=== PATIENT | male | born 1935 | race Caucasian/White ===

== ENCOUNTER 2016-09-09 14:51 | Inpatient (IN) | payer MEDICARE, OTHER ==
[~2016-09-09] VITALS: Ht 182.9 cm; Wt 76.3 kg
[~2016-09-09 14:51] MED LIST: ALBU18HF INH; ASCO100089 PO; B12/1TAB PO; DOXA4TAB3 PO; HYDR-4003 PO; LISI-567 PO; LOV80 SUBQ; METO50TA3 PO; MOME13HF INH; MULT-1018 PO; POTA10TA38 PO; PRD2.5T PO; TIOT18CA3 INH; UBID10CA4 PO; WARF1TAB8 PO; WARF2.5T8 PO
[2016-09-09 15:02] VITALS: BP 152/78; PULSE 104; RESP 22; O2SAT 88
--- NOTE | 2016-09-09 15:33 | ED.REPORT ---
HPI-Dyspnea / Wheezing Date of Service Sep 09, 2016 ED Provider: Lexa Jaeger MD 81 year old male with known COPD, and atrial fibrillation, anticoagulated on warfarin, presents to the ER accompanied by his with acute on chronic shortness of breath onset this morning upon awakening. Symptoms are exacerbated by minimal exertion. Currently symptoms are significantly improved. He also reports fever, increased work of breathing, cough, nasal congestion, and chills. Fever has been treated with Tylenol at home. Patient denies chest pain, nausea, vomiting, lower extremity swelling, and any exposure to ill contacts. He has received an influenza vaccination this year. reports that the patient finished a course of antibiotics 3-4 days ago for a suspected abscess on his right ankle. Nursing Notes Stated Complaint: COUGH, CONGESTION, SHORTNESS OF BREATH, CHILLS Chief Complaint: Respiratory Complaints Nursing Notes Reviewed: Yes (ScanSocial not reconciled) Allergies: Coded Allergies: codeine (Verified Allergy, Severe, Hives, 09/09/16) Sulfa (Sulfonamide Antibiotics) (Verified Allergy, Mild, 09/09/16) Scheduled Ascorbic Acid (Vitamin C) 1,000 Mg Tab.chew 1,000 MG PO DAILY B12/Levomefolate Calcium/B-6 (Foltx Tablet) 1 Each Tablet 1 EACH PO DAILY Doxazosin Mesylate (Doxazosin Mesylate) 4 Mg Tablet 4 MG PO DAILY Enoxaparin (Lovenox) 80 Mg/0.8 Ml Syringe 80 MG SUBQ Q12 Lisinopril (Lisinopril) 20 Mg Tablet 20 MG PO DAILY Metoprolol Tartrate (Metoprolol Tartrate) 50 Mg Tablet 75 MG PO BID Mometasone/Formoterol (Dulera 200 Mcg/5 Mcg Inhaler) 13 Gm Hfa.aer.ad 2 PUFFS INH BID Multivitamin (Multi Vitamin Daily) 1 Each Tablet 1 EACH PO DAILY Potassium Chloride (Potassium Chloride) 10 Meq Tab.er.prt 10 MEQ PO DAILY Tiotropium M[place] (Spiriva) 18 Mcg Cap.w.dev 18 MCG INH DAILY Ubidecarenone (Co Q-10) 10 Mg Capsule 10 MG PO DAILY Warfarin Sodium (Jantoven) 2.5 Mg Tablet 2.5 MG PO Wed, ,Wed,,Aquino Warfarin Sodium (Jantoven) 1 Mg Tablet 1.25 MG PO Scheduled PRN Albuterol Sulfate (Ventolin HFA Inhaler) 200 Puff/18 Gm Inhaler 2 PUFFS INH PRN For Shortness of Breath Hydrocodone-Acetaminophen 5-325 mg (Hydrocodone-Acetaminophen 5-325 mg) 1 Each Tablet 1-2 TABLET PO Q4H PRN PRN For Moderate Pain Prednisone (PredniSONE) 2.5 Mg Tab 5 MG PO DAILY PRN PRN For Mild Pain General Time Seen by MD: 15:17 Chief Complaint Cough, Shortness of breath Hx Obtained From: Patient, Spouse Arrived By: Walk-in Sudden in Onset?: No Onset Occurred: 9 - 12 hours ago Symptom Duration: Since onset Associated with: Reports: Fever, Nasal congestion (/), Denies: Chest pain, Leg pain, Leg swelling, Nausea, Vomiting Exacerbated by: Activity Pertinent Negative: Relieved by nothing Context Related History: Reports: COPD Recent Healthcare: Recent doctor visit Past Medical History Past Medical History Notes: Admit 05/2016 for appendicitis Past Medical History Atrial Fibrillation & ?mechanical Valve on Warfarin (note on Sep 09 I do not appreciate a mechanical heart valve on Xray) COPD Skin cancer Cervical disc disease Past Surgical History s/p TAVR Aortic valve replacement (mechanical per EMR, but I do not appreciate on CXR 09/09/16) Neck surgery 3 skins cancers removed Pacemaker Anatomy June 03 Reports: Pacemaker insertion Smoking History Never Smoker Social History Alcohol Use: "Social" Drug Use: Denies drug use Other Social History: Ambulatory Status Independent Review of Systems Constitutional: Reports: Chills, Fever Ears / Nose / Throat: Reports: Nasal congestion Respiratory: Reports: Dyspnea on exertion, Non-productive cough, Shortness of breath, Denies: Hemoptysis Cardiovascular: Denies: Chest pain, Palpitations Musculoskeletal: Denies: Back pain, Extremity pain, Extremity swelling, Lumbar pain, Neck pain Skin: Denies Diaphoresis Complete sys rev & neg: except as marked. GI: Denies: Abdominal pain, Diarrhea, Nausea, Vomiting Physical Exam Initial Vital Signs Vital Signs (First) Date Time Temp Pulse Resp B/P Pulse Ox O2 Delivery O2 Flow Rate FiO2 09/09/16 15:02 39.0 104 22 152/78 88 Room Air 09/09/16 16:33 2 Initial VS: Reviewed, Vital signs abnormal Head / Eyes: Atraumatic, Normocephalic Abdomen / GI: Soft, Non-tender, No guarding, No rebound, No distention Skin: Warm, Dry, No cyanosis Neurologic: Alert, Oriented, Nonfocal Psychiatric: Mood/affect normal, Behavior normal, Normal thought content General/Constitutional: Awake, Alert, Well developed, Well nourished Fatigued. Neck: Atraumatic, Supple, No meningismus, Full range of motion, No swelling, Non-tender, No masses Respiratory / Chest: No wheezing, No chest tenderness, No chest wall deformity Rales / Rhonchi: Positive: Rhonchi diffuse Cardiovascular: Heart rate NL, Regular rhythm, Heart sounds NL, Peripheral circulation NL +1 edema of the ankles Ankle / Foot: Full range of motion, No deformity, Neurologic intact, Vascular intact No warmth or signs of infection. Interpretation & Diagnostics Lab Results Interpretation Result Diagram: 09/09/16 1534 09/09/16 1534 Test 09/09/16 15:34 09/09/16 16:01 09/09/16 16:36 White Blood Count 11.3th/mm3 (3.8-10.1) Red Blood Count 3.79mil/mm3 (4.40-5.80) Hemoglobin 12.7g/dL (13.8-17.2) Hematocrit 39.2% (41.0-50.0) Mean Corpuscular Volume 103.4fL (81-100) Mean Corpuscular Hemoglobin 33.5pg (27.0-35.0) Mean Corpuscular Hemoglobin Concent 32.4% (32.0-37.0) Red Cell Distribution Width 14.8% (12.3-15.4) Platelet Count 157bil/L (150-400) Neutrophils (%) (Auto) 87.6% (40-74) Lymphocytes (%) (Auto) 7.2% (14-46) Monocytes (%) (Auto) 3.6% (4-12) Eosinophils (%) (Auto) 1.0% (0-5) Basophils (%) (Auto) 0.1% (0-3) Prothrombin Time 19.5sec (8.1-12.5) Prothromb Time International Ratio 1.80ratio Sodium Level 139mEq/L (134-144) Potassium Level 4.3mEq/L (3.5-5.2) Chloride Level 102mEq/L (97-108) Carbon Dioxide Level 24mmol/L (18-29) Blood Urea Nitrogen 21mg/dL (8-27) Creatinine 1.09mg/dL (0.76-1.27) Estimat Glomerular Filtration Rate 69mL/min (>59) Glucose Level 137mg/dL (60-99) Lactic Acid Level 1.4mmol/L (0.4-2.0) Calcium Level 8.7mg/dL (8.5-10.1) Total Bilirubin 0.4mg/dL (0.0-1.2) Aspartate Amino Transf (AST/SGOT) 26U/L (0-50) Alanine Aminotransferase (ALT/SGPT) 26U/L (0-44) Alkaline Phosphatase 62U/L (25-160) Troponin T < 0.010ug/L (0.0-0.011) Pro-B-Type Natriuretic Peptide 491.9pg/mL (0-486) Total Protein 6.2g/dL (6.4-8.4) Albumin 3.5g/dL (3.4-5.0) Urine Color Yellow (YELLOW) Urine Appearance Clear (CLEAR,HAZY) Urine pH 5.5 (5.0-8.0) Urine Specific [place] 1.025 (1.003-1.035) Urine Protein Negativemg/dL (NEG,TRACE) Urine Glucose (UA) Negativemg/dL (NEGATIVE) Urine Ketones Negativemg/dL (NEGATIVE) Urine Occult Blood Negative (NEGATIVE) Urine Nitrite Negative (NEGATIVE) Urine Bilirubin Negative (NEGATIVE) Urine Urobilinogen Normalmg/dL (NORMAL) Urine Leukocyte Esterase Negative (NEGATIVE) Urine RBC 0-2/hpf (0-2) Urine WBC 0-5/hpf (0-5) Urine Epithelial Cells None/hpf (NONE-MOD) Urine Crystals None seen (NONE SEEN) Urine Bacteria Few/hpf (NONE-FEW) Urine Hyaline Casts None/lpf (NONE) Urine Granular Casts None seen (NONE SEEN) Urine Waxy Casts None seen (NONE SEEN) Urine Red Blood Cell Casts None seen (NONE SEEN) Urine White Blood Cell Casts None seen (NONE SEEN) Urine Mucus None seen (None Seen) Urine Trichomonas None seen (NONE SEEN) Urine Yeast None (NONE SEEN) Urinalysis Comment None Urine Culture Reflexed Not indicated Hold Urine Received (Received) Lab Results Interpretation: CBC possible leukocytosis CMP normal Influenza A positive Lactic acid normal blood cultures 2 pending INR subtherapeutic ECG Interpretation ECG Interpretation: Ventricular paced complexes, rate 102 Time: 15:41 Interpreted by: ED physician X-Ray Chest Interpretation Chest Xray Interpretation: IMPRESSION: Bibasilar atelectasis versus aspiration or pneumonia. Correlate clinically. Dictated by: Lenin Cesar RRA Interpreted: Niya Rizo MD on 09/09/2016 at 16:20 Transcribed by: ARAMIS on 09/09/2016 at 16:21 View: Portable, 1 view Interpretation / Wet Read by: Interpret - Radiologist Re-Eval/Medical Decision Med Decision/Clinical Course This is an 81-year-old male presents with acute onset of fevers, chills, shortness of breath. The patient has chronic COPD, but is not on home O2. Pacemaker, and a history of atrial fibrillation on warfarin. The EMR suggests a history of mechanical valve, but it sounds to me like he had a true TAVR for aortic stenosis, and I do not appreciate findings of a mechanical heart valve on his chest x-ray. Patient is mildly hypoxic, tachypneic, and has diffuse rhonchi-not dwight bronchospasm-on clinical exam. He does appear fatigued. He is febrile. His chest x-ray suggests a lower lobe pneumonia. His influenza screen is positive for influenza A. He has hypoxia, comorbidities the patient was started on empiric Tamiflu, he received Tylenol for fever, IV fluids, and antibiotics for community-acquired pneumonia. He has no risk factors for hospital acquired infection. He received empiric albuterol, Atrovent, and steroids. On re-evaluation he states he is feeling better, but her blood pressure in the low 90s, so additional fluids were given. The patient is being admitted in improved condition. He states that he feels much better, he looks markedly improved, his lactic acid is normal. He does not appear to additionally septic, he monitored carefully. He does have classic influenza findings superimposed upon multiple comorbidities. Case has been discussed with the hospitalist. The patient's INR slightly subtherapeutic. He is anticoagulated for regular atrial fibrillation and not a mechanical valve given a valve is not seen on xray. His INR is likely to increase with the antibiotics being used. Source of Hx: Old records Re-Evaluation/Progress : Time of Eval: 18:30 Re-Evaluation/Progress Note: Discussed lab and radiology results and need for admission. Patient is amenable to the plan. All other questions addressed. Consultation : Referral / Consult Name: Jennifer Meadows MD Consulted With: Hospitalist Call Returned at: 18:57 Youth Counselor: Agrees with eval, Agrees with plan, Accepts admit Differential Diagnosis: Positive: COPD exacerbation, Dysrhythmia, Pneumonia, Upper resp infection, Negative: Carbon monoxide poisoning, Hyperventilation, Myocardial infarction , Pneumothorax, Pulmonary embolism, Respiratory failure Counseled Regarding: Diagnosis, Lab results, Need for admission Discharge & Departure Impression: Primary Impression: Pneumonia Pneumonia type: due to unspecified organism Laterality: bilateral Lung location: lower lobe of lung Qualified Code: J18.9 - Pneumonia, unspecified organism Additional Impressions: Influenza A Anticoagulated on Coumadin COPD with acute exacerbation Disposition: ADMITTED TO HOSPITAL Discharge Condition All VS Reviewed: Yes Condition: Stable Referrals: Brandon Carbajal MD (PCP) Francy Attestation Portions of this note were transcribed by Salvatore North. I, Dr. Jaeger, personally performed the history, physical exam and medical decision-making; I reviewed and confirmed the accuracy of the information in the transcribed note. Signed by: Francy Jones, 09/09/2016 and 18:30 copies to: Brandon Carbajal MD, Matthew F MD Sep 09, 2016 15:32 SALVATROE NORTH Sep 09, 2016 15:41
[2016-09-09] MEDS ORDERED: Albuterol 2.5 mg/3 mL Inhalation Solution NEB ONE (16:00)
[2016-09-09] MEDS ORDERED: MethylprednisoLONE Sodium Succinate 62.5 mg/mL 2 mL Inj IVPUSH ONE (16:00)
[2016-09-09] MEDS ORDERED: Ipratropium 0.02% 0.5 mg/2.5 mL Inhalation Solution NEB ONE (16:00)
[2016-09-09 16:08] LABS: BASOPHILS % (AUTO) 0.1 % (0-3); MONOCYTES % (AUTO) 3.6 % (4-12); Mean Corpuscular Hemoglobin 33.5 pg (27.0-35.0); Mean Corpuscular Volume 103.4 fL (81-100); NEUTROPHILS % (AUTO) 87.6 % (40-74); Platelet Count 157 bil/L (150-400)
[2016-09-09 16:17] LABS: APPEARANCE,URINE CLEAR (CLEAR,HAZY); COLOR,URINE YELLOW (YELLOW); OCCULT BLOOD,URINE NEGATIVE (NEGATIVE); PH,URINE 5.5 (5.0-8.0); UROBILINOGEN,URINE NORMAL (NORMAL)
[2016-09-09] MEDS ORDERED: Azithromycin Inj 500 MG in Dextrose 5% w/Vial Mate 250 ML IV ONE (16:20)
[2016-09-09] MEDS ORDERED: cefTRIAXone Inj 2,000 MG in Dextrose 5% Minibag Plus 50 ML IV ONE (16:20)
--- NOTE | 2016-09-09 16:21 | DRSVH ---
PROCEDURE: X-RAY CHEST ONE VIEW, PORTABLE ([id number]) INDICATIONS: SHORT OF BREATH TECHNIQUE: One view of the chest was acquired. COMPARISON: [facility], CT, CT ABD PELVIS W CON, 06/02/2016, 2:39. FINDINGS: Surgical changes and devices: Dual chamber left cardiac pacer present in expected position. Lungs and pleura: No pleural effusions or pneumothorax. Bibasilar airspace opacities are present, l eft greater than right, otherwise lungs are clear. Mediastinum: Mediastinal contours appear normal. Heart size is normal. Bones and chest wall: No suspicious bony lesions. Overlying soft tissues appear unremarkable. IMPRESSION: Bibasilar atelectasis versus aspiration or pneumonia. Correlate clinically. Dictated by: Lenin Cesar RRA Interpreted: Niya Rizo MD on 09/09/2016 at 16:20 Transcribed by: ARAMIS on 09/09/2016 at 16:21 Approved by: Niya Rizo MD, PhD on 09/09/2016 at 16:47
[2016-09-09 16:28] LABS: TROPONIN T < 0.010 ug/L (0.0-0.011)
[2016-09-09 16:33] VITALS: PULSE 122; RESP 32; O2SAT 98
[2016-09-09] MEDS ORDERED: Alum-Mag Hydrox-Simeth 30 mL Suspension PO PRN (18:05)
[2016-09-09] MEDS ORDERED: Ondansetron 2 mg/mL 2 mL Inj IVPUSH PRN (18:05)
[2016-09-09 18:21] LABS: INR 1.8 ratio
[2016-09-09 18:54] VITALS: BP 99/41; PULSE 106; RESP 28; O2SAT 96
[2016-09-09] MEDS ORDERED: 0.9% Sodium Chloride 1,000 ML IV ONE (18:55)
[2016-09-09 19:23] VITALS: BP 114/67; PULSE 91; RESP 18; O2SAT 96
[2016-09-09] MEDS ORDERED: Albuterol-Ipratropium 3 mL Inhalation Solution NEB SCH (20:30)
[2016-09-09] MEDS ORDERED: Albuterol-Ipratropium 3 mL Inhalation Solution NEB PRN (20:30)
[2016-09-09 21:28] VITALS: BP 132/74; PULSE 87; O2SAT 97
[2016-09-09] MEDS: 0.9% Sodium Chloride 1,000 ML IV SCH (21:30)
--- NOTE | 2016-09-09 22:29 | PCM.HPMED ---
Subjective Date of Service Sep 09, 2016 Primary Provider: Admitting Physician: Jennifer Meadows MD Primary Care Physician: Brandon Carbajal MD Attending Physician: Jennifer Meadows MD Chief Complaint: Cough, dyspnea History of Present Illness: 81 year old male with COPD, not on home O2, never has intubated in the past, on tripple nebs, atrial fibrillation, anticoagulated on warfarin p/w acute worsening of SOB, cough, chills. Patient was usual state of health until 2 days ago, patient started feeling that catching a cold, cough, mild difficulty breathing. Patient Using his inhalers, did not increase the usage of albuterol, today, patient was really short of breath even with minimal exertion at home, also noticed some nasal congestion, cough has gotten worse, but unable to cough up any sputum, also had some chills but did not take the temperature, decided to come to the hospital. Of note, patient was prescribed clindamycin for right ankle possible 'MRSA infection" by his PCP Dr. Carbajal, finished taking antibiotics 2 days ago. Patient did not recall any sick contact. Patient is he is taking chronic steroids for arthritis, 2.5mg daily ROS: Currently Patient denied fever, chills, dysuria, frequency, urgency, chest pain, palpitation, nausea, vomiting, abdominal pain, diarrhea, constipation. in ED, VS 152/78, 104, 22, 39.4 febrile, 88% on RA, 96% on RA, Flu swab was positive for influenza A virus, Review of Systems: Pertinent positives as noted in history of present illness. All other systems were reviewed and are negative Allergies Coded Allergies: codeine (Verified Allergy, Severe, Hives, 09/09/16) Sulfa (Sulfonamide Antibiotics) (Verified Allergy, Mild, 09/09/16) Home Medications Scheduled Ascorbic Acid (Vitamin C) 1,000 Mg Tab.chew 1,000 MG PO DAILY B12/Levomefolate Calcium/B-6 (Foltx Tablet) 1 Each Tablet 1 EACH PO DAILY Doxazosin Mesylate (Doxazosin Mesylate) 4 Mg Tablet 4 MG PO DAILY Enoxaparin (Lovenox) 80 Mg/0.8 Ml Syringe 80 MG SUBQ Q12 Lisinopril (Lisinopril) 20 Mg Tablet 20 MG PO DAILY Metoprolol Tartrate (Metoprolol Tartrate) 50 Mg Tablet 75 MG PO BID Mometasone/Formoterol (Dulera 200 Mcg/5 Mcg Inhaler) 13 Gm Hfa.aer.ad 2 PUFFS INH BID Multivitamin (Multi Vitamin Daily) 1 Each Tablet 1 EACH PO DAILY Potassium Chloride (Potassium Chloride) 10 Meq Tab.er.prt 10 MEQ PO DAILY Tiotropium [place] (Spiriva) 18 Mcg Cap.w.dev 18 MCG INH DAILY Ubidecarenone (Co Q-10) 10 Mg Capsule 10 MG PO DAILY Warfarin Sodium (Jantoven) 2.5 Mg Tablet 2.5 MG PO Wed, ,Wed,Sa,Aquino Warfarin Sodium (Jantoven) 1 Mg Tablet 1.25 MG PO , Scheduled PRN Albuterol Sulfate (Ventolin HFA Inhaler) 200 Puff/18 Gm Inhaler 2 PUFFS INH PRN For Shortness of Breath Hydrocodone-Acetaminophen 5-325 mg (Hydrocodone-Acetaminophen 5-325 mg) 1 Each Tablet 1-2 TABLET PO Q4H PRN PRN For Moderate Pain Prednisone (PredniSONE) 2.5 Mg Tab 5 MG PO DAILY PRN PRN For Mild Pain PMH Past Medical History Notes: Admit 05/2016 for appendicitis Past Medical History Atrial Fibrillation & ?mechanical Valve on Warfarin COPD Skin cancer Cervical disc disease Past Surgical History s/p TAVR Aortic valve replacement (mechanical per EMR, but I do not appreciate on CXR 09/09/16) Neck surgery 3 skins cancers removed Pacemaker Anatomy June 03 Reports: Pacemaker insertion Smoking History former smoking, [id number] quit 25yrs ago Social History Alcohol Use: "Social" Drug Use: Denies drug use Other Social History: , lives with Social History Hx Alcohol Use: Yes Hx Substance Use: No Hx Tobacco Use: No Smoking Status: Never Smoker Exam Vital Signs Vital Sign - Last Date Time Temp Pulse Resp B/P Pulse Ox O2 Delivery O2 Flow Rate FiO2 09/09/16 19:23 36.4 91 18 114/67 96 Nasal Cannula 4.00 Exam NAD, comfortably laying down on the bed Speaks in full sentences, no accessory muscle use Intermittently coughing no JVD, MMM, no LAD RRR, nl s1, s2 no mrg diffuse crackles more at bases S,ND,NT,normoactive BS+ warm, no edema, pulses 2/2 Lab and Diagnostics Result Diagram: 09/09/16 1534 09/09/16 1534 X-Rays, CTs and MRIs PROCEDURE: CT ANKLE RIGHT W/CONTRAST ([id number]) INDICATIONS: RIGHT ANKLE SWELLING TECHNIQUE: After the administration of intravenous contrast, 3 mm axial sections acquired of the right ankle and foot, with coronal and sagittal reformats. For radiation dose reduction, the following was used: automated exposure control, adjustment of mA and/or kV according to patient size. COMPARISON: None. FINDINGS: Image quality: Excellent. Bones: No fracture or dislocation. No lytic or blastic lesions identified. No erosive changes are identified. No periosteal reaction is identified. Soft tissues: Extensive soft tissue edema is noted. Soft tissue edema is nonspecific but could be related to infectious cellulitis. Please correlate with clinical findings. There is a 2.2 x 0.8 x 2.6 cm fluid collection in the anterolateral soft tissues immediately anterior to the distal fibula and lateral to the distal tibia (series 6, image 72; series 5, image 107; series 4, image 48. The fluid collection as partially enhancing wall and may represent a developing abscess.. Scattered small vessel atherosclerotic calcifications are noted. IMPRESSION: 1. Extensive soft tissue edema. Infectious cellulitis cannot be excluded. Please correlate with clinical and laboratory data. 2. Small fluid collection with partially enhancing wall in the anterolateral soft tissues near the proximal to the right ankle which may represent early/ developing abscess. 3. No dwight evidence of osteomyelitis. CT imaging can be insensitive to osteomyelitis during the initial 15 days of the disease process. If there is clinical concern for osteomyelitis, then three-phase nuclear medicine bone scan is warranted. Dictated by: Niya Rizo MD, PhD on 08/27/2016 at 13:01 Approved by: Niya Rizo MD, PhD on 08/27/2016 at 13:01 PROCEDURE: X-RAY CHEST ONE VIEW, PORTABLE ([id number]) INDICATIONS: SHORT OF BREATH TECHNIQUE: One view of the chest was acquired. COMPARISON: [facility], CT, CT ABD PELVIS W CON, 06/02/2016, 2:39. FINDINGS: Surgical changes and devices: Dual chamber left cardiac pacer present in expected position. Lungs and pleura: No pleural effusions or pneumothorax. Bibasilar airspace opacities are present, left greater than right, otherwise lungs are clear. Mediastinum: Mediastinal contours appear normal. Heart size is normal. Bones and chest wall: No suspicious bony lesions. Overlying soft tissues appear unremarkable. IMPRESSION: Bibasilar atelectasis versus aspiration or pneumonia. Correlate clinically. Dictated by: Lenin Cesar RRA Interpreted: Niya Rizo MD on 09/09/2016 at 16:20 Transcribed by: ARAMIS on 09/09/2016 at 16:21 Approved by: Niya Rizo MD, PhD on 09/09/2016 at 16:47 Assessment & Plan acute, active dyspnea, cough, POA, influenza A+ infection, prone to possible bacterial pneumonia based on CXR, COPD -duonebs q4h prn, as pt already significantly felt better, -Resume home inhalers -s/p Rocephine, azithromycin, will continue for now -strep Ag, legionella Ag, resp PCR, sputum cx -O2 supplement, target>95% -trends procalcitonin tomorrow -s/p solu-medrol 125mg, will continue prednisone 40mg qd especially given chronic steroid use. recent Right ankle swelling, finished clindamycin 7day course for possible MRSA infection, exam were unremarkable, CT ankle with contrast 08/27 ruled out OM. -wouldn't start new abx for this findings, clinically stable -has upcoming follow up with ortho 09/21 chronic, stable Atrial Fibrillation & ?mechanical Valve on Warfarin, INR 1.80 today, continue coumadine per pharm ?hand arthritis, pt is on chronic steroid 2.5mg qd, resume once 40mg x5days done , dispo:Patient will be admitted with inpatient status with expectation of inpatient therapy for more than 2 midnights diet: cardiac dvt ppx: Heparin subcutaneous Full code Time spent 65 minutes Jennifer Meadows MD Sep 09, 2016 20:01
--- NOTE | 2016-09-09 22:38 | PCM.CONPHA ---
Subjective Date of Service: Sep 09, 2016 Cough, dyspnea Reason for Pharmacy Consult: Anticoagulation Management Objective Vital Signs Date Time Temp Pulse Resp B/P Pulse Ox O2 Delivery O2 Flow Rate FiO2 09/09/16 21:28 36.6 87 132/74 97 Nasal Cannula 4.00 09/09/16 19:23 36.4 91 18 114/67 96 Nasal Cannula 4.00 09/09/16 18:54 106 28 99/41 96 Nasal Cannula 4 09/09/16 16:33 122 32 98 Nasal Cannula 2 09/09/16 15:02 39.0 104 22 152/78 88 Room Air Weight (Kilograms): 76.300 Height (Feet): 6 Height (Inches): 0.00 Test 09/09/16 15:34 09/09/16 16:01 09/09/16 16:36 09/09/16 22:20 White Blood Count 11.3th/mm3 (3.8-10.1) Red Blood Count 3.79mil/mm3 (4.40-5.80) Hemoglobin 12.7g/dL (13.8-17.2) Hematocrit 39.2% (41.0-50.0) Mean Corpuscular Volume 103.4fL (81-100) Mean Corpuscular Hemoglobin 33.5pg (27.0-35.0) Mean Corpuscular Hemoglobin Concent 32.4% (32.0-37.0) Red Cell Distribution Width 14.8% (12.3-15.4) Platelet Count 157bil/L (150-400) Neutrophils (%) (Auto) 87.6% (40-74) Lymphocytes (%) (Auto) 7.2% (14-46) Monocytes (%) (Auto) 3.6% (4-12) Eosinophils (%) (Auto) 1.0% (0-5) Basophils (%) (Auto) 0.1% (0-3) Prothrombin Time 19.5sec (8.1-12.5) Prothromb Time International Ratio 1.80ratio Sodium Level 139mEq/L (134-144) Potassium Level 4.3mEq/L (3.5-5.2) Chloride Level 102mEq/L (97-108) Carbon Dioxide Level 24mmol/L (18-29) Blood Urea Nitrogen 21mg/dL (8-27) Creatinine 1.09mg/dL (0.76-1.27) Estimat Glomerular Filtration Rate 69mL/min (>59) Glucose Level 137mg/dL (60-99) Lactic Acid Level 1.4mmol/L (0.4-2.0) Calcium Level 8.7mg/dL (8.5-10.1) Total Bilirubin 0.4mg/dL (0.0-1.2) Aspartate Amino Transf (AST/SGOT) 26U/L (0-50) Alanine Aminotransferase (ALT/SGPT) 26U/L (0-44) Alkaline Phosphatase 62U/L (25-160) Troponin T < 0.010ug/L (0.0-0.011) Pro-B-Type Natriuretic Peptide 491.9pg/mL (0-486) Total Protein 6.2g/dL (6.4-8.4) Albumin 3.5g/dL (3.4-5.0) Urine Color Yellow (YELLOW) Urine Appearance Clear (CLEAR,HAZY) Urine pH 5.5 (5.0-8.0) Urine Specific [place] 1.025 (1.003-1.035) Urine Protein Negativemg/dL (NEG,TRACE) Urine Glucose (UA) Negativemg/dL (NEGATIVE) Urine Ketones Negativemg/dL (NEGATIVE) Urine Occult Blood Negative (NEGATIVE) Urine Nitrite Negative (NEGATIVE) Urine Bilirubin Negative (NEGATIVE) Urine Urobilinogen Normalmg/dL (NORMAL) Urine Leukocyte Esterase Negative (NEGATIVE) Urine RBC 0-2/hpf (0-2) Urine WBC 0-5/hpf (0-5) Urine Epithelial Cells None/hpf (NONE-MOD) Urine Crystals None seen (NONE SEEN) Urine Bacteria Few/hpf (NONE-FEW) Urine Hyaline Casts None/lpf (NONE) Urine Granular Casts None seen (NONE SEEN) Urine Waxy Casts None seen (NONE SEEN) Urine Red Blood Cell Casts None seen (NONE SEEN) Urine White Blood Cell Casts None seen (NONE SEEN) Urine Mucus None seen (None Seen) Urine Trichomonas None seen (NONE SEEN) Urine Yeast None (NONE SEEN) Urinalysis Comment None Urine Culture Reflexed Not indicated Hold Urine Received (Received) Assessment/Plan Assessment/Plan Vanco per Rx Indication: A-Fib INR Goal 2 - 3; INR today: 1.8 Home Dose: 1.25mg /, 2.5mg all other days Pt has already taken today's dose (in AM) Daily INR ordered Ruddy Davidson PharmD Sep 09, 2016 22:38
[2016-09-10] VITALS (10 sets, daily range): BP systolic 123–144; BP diastolic 61–78; PULSE 70–91; RESP 19–20; O2SAT 95–98
--- NOTE | 2016-09-10 02:59 | NUR ---
Admit Patient arrived to floor from the ED at 1850, absent of pain, able to ambulate, alert and oriented X3, was on 4L via nasal canula O2 sat 96, telemetry placed on patient, droplet and contact precautions posted. Patient was oriented to the call light, bathroom, and hospital policies.
--- NOTE | 2016-09-10 03:31 | NUR ---
Respiratory Decreased oxygen to 2L via nasal canula, maintaining sats in upper 90's. No complaints of SOB or chest pain. Patient has intermittent nonproductive cough and wet lung sounds. Continuing to assess oxygenation and for SOB. Addendum: 09/10/16 at 0413 by ROMAIN CARPIO Patient up to bathroom and back to bed with complaints of shortness of breath. O2 sats 97 with 2L via nasal canula, lung sounds heard were moist throughout. Patient sat on the side of the bed for a couple of minutes and stated he was beginning to catch his breath. Educated patient on using call light before attempting to ambulate again. Will continue to monitor O2 requirements and assess for increasing SOB.
[2016-09-10 05:41] LABS: BASOPHILS % (AUTO) 0.1 % (0-3); EOSINOPHILS % (AUTO) 0 % (0-5); MONOCYTES % (AUTO) 3.2 % (4-12); Mean Corpuscular Hemoglobin 33.3 pg (27.0-35.0); Mean Corpuscular Volume 103.8 fL (81-100); NEUTROPHILS % (AUTO) 93.2 % (40-74); Platelet Count 114 bil/L (150-400)
[2016-09-10 05:55] LABS: INR 1.91 ratio
[2016-09-10 06:29] LABS: Magnesium 1.8 mg/dL (1.6-2.6); Phosphorus 4.4 mg/dL (2.5-4.9)
[2016-09-10] MEDS: 0.9% Sodium Chloride 1,000 ML IV SCH ×3 (07:35→19:53)
[2016-09-10] MEDS: predniSONE 20 mg Tablet PO SCH (07:36)
[2016-09-10] MEDS: Tiotropium 18mcg/Cap 5 Capsule Inhaler Kit INHALATION SCH (07:38)
[2016-09-10] MEDS: [UNRECOGNIZED DRUG - OTHER] TOPICAL SCH ×2 (07:39→20:09)
[2016-09-10] MEDS: Azithromycin Inj 500 MG in Dextrose 5% w/Vial Mate 250 ML IV SCH (07:39)
[2016-09-10] MEDS: FORMOTEROL TOPICAL SCH ×2 (07:39→20:09)
[2016-09-10] MEDS: MOMETASONE TOPICAL SCH ×2 (07:39→20:09)
[2016-09-10] MEDS: cefTRIAXone Inj 2,000 MG in Dextrose 5% Minibag Plus 50 ML IV SCH (09:01)
--- NOTE | 2016-09-10 10:37 | PCM.PNMED ---
Subjective Date of Service Sep 10, 2016 Subjective "Bill" reports that he has been feeling profoundly fatigued over the past 3 days and that he was surprised to see how exhausting simply ambulating from the bed to the bathroom and back was for him this morning. He admits to alternating chills and sweats. Exam Vital Signs Vital Sign - Last Date Time Temp Pulse Resp B/P Pulse Ox O2 Delivery O2 Flow Rate FiO2 09/10/16 09:23 36.6 85 20 126/65 98 Nasal Cannula 2.00 Intake and Output 09/09/16 09/09/16 09/10/16 Cumulative From/Thru 15:00 23:00 07:00 09/09/16 15:02 - 09/10/16 06:37 Intake Total 1000 ml 2409 ml 3409 ml Output Total 150 ml 150 ml Balance 1000 ml 2259 ml 3259 ml Intake Oral 300 ml 300 ml IV Total 1000 ml 2109 ml 3109 ml Output Urine Total 150 ml 150 ml # Bowel Movements 1 1 Exam General: Elderly male resting comfortably in bed with the head of the bed elevated to 45degrees upon my entering the eula. Supplemental oxygen given via nasal cannular at 2L/h. No acute distress. HEENT: Moist mucus membranes. Sclera anicteric Cardiac: Irregularly irregular. S2 is a mechanical click. No murmur, rub, or gallop Lungs: Coarse breath sounds throughout with bibasilar wheezing on both inspiration and expiration. Bibasilar crackles L >R. No rhonchi present. No accessory muscle use or tripoding. Abdomen: Normoactive bowel tones. Soft, nontender and nondistended. Extremities: Trace pitting edema distal to the knees bilaterally. No clubbing or cyanosis present Neuro: Awake, alert, and oriented. Moves all 4 extremities with ease. Observed from room window to ambulate slowly though with ease within the room. Normal speech. IVs and Medications Medications Reviewed: Medications were reviewed in detail Lab and Diagnostics Procalcitonin 9.34 MCV 103.8 Result Diagram: 09/10/1652709/10/16527 X-Rays, CTs and MRIs PROCEDURE: CT ANKLE RIGHT W/CONTRAST (40224) INDICATIONS: RIGHT ANKLE SWELLING TECHNIQUE: After the administration of intravenous contrast, 3 mm axial sections acquired of the right ankle and foot, with coronal and sagittal reformats. For radiation dose reduction, the following was used: automated exposure control, adjustment of mA and/or kV according to patient size. COMPARISON: None. FINDINGS: Image quality: Excellent. Bones: No fracture or dislocation. No lytic or blastic lesions identified. No erosive changes are identified. No periosteal reaction is identified. Soft tissues: Extensive soft tissue edema is noted. Soft tissue edema is nonspecific but could be related to infectious cellulitis. Please correlate with clinical findings. There is a 2.2 x 0.8 x 2.6 cm fluid collection in the anterolateral soft tissues immediately anterior to the distal fibula and lateral to the distal tibia (series 6, image 72; series 5, image 107; series 4, image 48. The fluid collection as partially enhancing wall and may represent a developing abscess.. Scattered small vessel atherosclerotic calcifications are noted. IMPRESSION: 1. Extensive soft tissue edema. Infectious cellulitis cannot be excluded. Please correlate with clinical and laboratory data. 2. Small fluid collection with partially enhancing wall in the anterolateral soft tissues near the proximal to the right ankle which may represent early/ developing abscess. 3. No dwight evidence of osteomyelitis. CT imaging can be insensitive to osteomyelitis during the initial 15 days of the disease process. If there is clinical concern for osteomyelitis, then three-phase nuclear medicine bone scan is warranted. Dictated by: Niya Rizo MD, PhD on 08/27/2016 at 13:01 Approved by: Niya Rizo MD, PhD on 08/27/2016 at 13:01 PROCEDURE: X-RAY CHEST ONE VIEW, PORTABLE ([id number]) INDICATIONS: SHORT OF BREATH TECHNIQUE: One view of the chest was acquired. COMPARISON: [facility], CT, CT ABD PELVIS W CON, 06/02/2016, 2:39. FINDINGS: Surgical changes and devices: Dual chamber left cardiac pacer present in expected position. Lungs and pleura: No pleural effusions or pneumothorax. Bibasilar airspace opacities are present, left greater than right, otherwise lungs are clear. Mediastinum: Mediastinal contours appear normal. Heart size is normal. Bones and chest wall: No suspicious bony lesions. Overlying soft tissues appear unremarkable. IMPRESSION: Bibasilar atelectasis versus aspiration or pneumonia. Correlate clinically. Dictated by: Lenin LAMAR Interpreted: Niya Rizo MD on 09/09/2016 at 16:20 Transcribed by: ARAMIS on 09/09/2016 at 16:21 Approved by: Niya Rizo MD, PhD on 09/09/2016 at 16:47 Assessment & Plan Kobi is an 81yo male with a COPD on chronic prednisone of 2.5mg daily who presented with worsening dyspnea and profound fatigue which began 2 days prior to admission. He has been admitted for the treatment of influenza A and pneumonia 1. Acute influenza A, present on admission - Tamiflu BID for 5 days, today is day #2 of treatment - I suspect his generalized fatigue is do to this and to his pneumonia, will have him work with physical therapy tomorrow 2. Acute community acquired pneumonia, present on admission, ongoing - Physical examination, CXR, and procalcitonin are indicative of bacterial pneumonia - Sputum culture ordered - MRSA screen ordered. Given #1 above, he is an higher risk for MRSA pneumonia - Ceftriaxone and azithromycin to be continued - Consider starting Linezolid BID if MRSA positive - Will consult Dr Cavanaugh for assistance with his care - DuoNeb q4h PRN - Supplemental oxygen to maintain SPO2 88-92% - Repeat procalcitonin and CBC tomorrow morning 3. Sepsis due to influenza and pneumonia, present on admission, resolved - Tachycardia and febrile on presentation to the ER - Received NS IV in the emergency department - See treatment for #1 and #2 above - Blood cultures without growth thus far 4. Acute exacerbation of COPD - Solu-medrol 125mg given in the ER - Continue prednisone 40mg daily for a 5 day course, then will resume home steroid dosing - Home inhalers to be continued 5. Chronic Atrial Fibrillation - Rate controlled and on chronic anticoagulation with warfarin - Warfarin dosing and INR checks per pharmacy 6. Leukocytosis, worsened - This may be secondary to steroid use, however it may also be attributed to #1 and #2 above, especially given the left shift - Monitor 7. Macrocytic anemia of unknown chronicity, present on admission - Unclear etiology - Vitamin B12 and folate ordered to evaluate - Monitor Ondansetron PRN nausea Bowel regimen PRN constipation Disposition: anticipate discharge in 2-3 days VTE Prophylaxis: Theraputic Anticoag with Warfarin VTE Mechanical Devices: Intermittant Pneumatic CD Resuscitation Status: CPR: Attempt Resuscitation (Discussed at bedside with the patient) Time spent 25 minutes Attending Statement I have seen and evaluated patient at bedside in addition to directly supervising care provided by resident physician. I agree with above documentation. Clare Castañeda DO Sep 10, 2016 10:31 Jamaal Coreas DO Sep 11, 2016 07:52
--- NOTE | 2016-09-10 13:30 | PCM.PHAPRO ---
Progress Cough, dyspnea WARFARIN DOSING PER PHARMACY Indication: Afib Home dose: 1.25 mg /, 2.5 mg ////Sa INR Goal: 2-3 Additional anticoagulation: N/A DI: zithromax, rocephin Lab Date Result Dose INR 09/09/2016 1.80 Home dose INR 09/10/2016 1.91 Plan: - Plan to give one dose of warfarin 2mg PO tonight - Pharmacy will continue to monitor INR/CBC/signs and symptoms of bleeding Kristen Zuñiga PharmD Sep 10, 2016 13:30
--- NOTE | 2016-09-10 16:28 | NUR ---
Social Work: Initial Assessment Data: Pt is an 81 y/o male admitted for pneumonia, COPD, influenza. Pt's PCP is Dr Carbajal, pt's insurance Medicare, [facility]. Readmit score is 4. ENLISTED ADVISOR met with pt at bedside, role explained. Pt states he lives in [facility] with his in a two story home. Pt states he uses no DME, drives, has no history of HH or SNF, no LTC or VA benefits, and is not a caregiver for another. Pt states that his spouse can drive him home at d/c. ENLISTED ADVISOR will continue to follow for possible HH need. Assessment: Pt who is independent at baseline. Plan: Pt will d/c home via POV when medically stable. ENLISTED ADVISOR will continue to follow for possible HH need. DARRIN San Addendum: 09/10/16 at 1630 by PRIYANK JONES SS Amended: Links added.
--- NOTE | 2016-09-10 18:04 | NUR ---
Medication sent down to pharmacy Pt brought home inhaler medication that had been ordered, but not available from hospital pharmacy. Medication verified and sent down to pharmacy for further verification and hospital label.
--- NOTE | 2016-09-10 18:52 | DRSVH ---
PROCEDURE: CT CHEST WITHOUT CONTRAST ([id number]) INDICATIONS: pneumonia TECHNIQUE: Noncontrast 5 mm thick sections acquired from the pulmonary apices to the posterior costophrenic angl es. 7 mm thick coronal and sagittal MIP reformats were then acquired. For radiation dose reduction, the following was used: automated exposure control, adjustment of mA and/or kV according to patient size. COMPARISON: [facility], CR, XR CHEST 1VW (PORTABLE), 09/09/2016, 16:01. FINDINGS: Image quality: Excellent. Lungs and pleura: Consolidation in the left lung base, and to a lesser extent within the right middle lobe and lingula. There is also patchy opacities and groundglass attenuation within the dependent ri ght lower lobe. No pneumothorax or pleural effusion. Central airways appear grossly patent. Diffuse s carring noted. There is upper lobe predominant centrilobular emphysema Mediastinum: Heart size is normal. Coronary artery calcifications No pericardial effusion. No medi astinal adenopathy by size criteria. Thoracic aorta and central pulmonary arteries are normal in siz e. Esophagus is normal in caliber. No hiatal hernia. Bones and chest wall: No suspicious bony lesions. No vertebral body compression fractures. No axil tess or supraclavicular adenopathy by size criteria. Thyroid gland negative. Abdomen: Visualized upper abdominal solid organs and bowel loops appear normal in the absence of con trast. IMPRESSION: Multiple areas of consolidation, most prominently within the left lung base in keeping with multifoca l pneumonia, and/or aspiration. Recommend clinical correlation and radiographic followup to document resolution Upper lobe predominant centrilobular emphysema. Additional chronic and incidental findings as above Dictated by: Cristian An M.D. on 09/10/2016 at 18:48 Approved by: Cristian An M.D. on 09/10/2016 at 18:51
[2016-09-11] VITALS (10 sets, daily range): BP systolic 137–155; BP diastolic 52–74; PULSE 61–90; RESP 18–20; O2SAT 96–99
--- NOTE | 2016-09-11 03:30 | NUR ---
SOB Pt has maintained SpO2 WNL on 2L all shift, does experience SOB with ambulation to BR.
[2016-09-11 06:18] LABS: BASOPHILS % (AUTO) 0 % (0-3); EOSINOPHILS % (AUTO) 0.1 % (0-5); MONOCYTES % (AUTO) 6.9 % (4-12); Mean Corpuscular Hemoglobin 33.4 pg (27.0-35.0); Mean Corpuscular Volume 103.3 fL (81-100); NEUTROPHILS % (AUTO) 87.1 % (40-74); Platelet Count 136 bil/L (150-400)
[2016-09-11 06:28] LABS: INR 2.09 ratio
--- NOTE | 2016-09-11 07:37 | CONS ---
[address] [address] CONSULTATION REPORT PATIENT: GAMALIEL MITCHELL : 1935 MR#: [id number] ADMIT: 09/09/2016 JOB ID: [id number] DATE OF SERVICE: 09/10/2016 INFECTIOUS DISEASE CONSULTATION: I thank Dr. Coreas for this timely consult. REASON FOR CONSULTATION: A rising procalcitonin in a patient with influenza. 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 His overall health has been reasonably good, though in May he experienced an acute appendicitis which required surgery. The patient recovered so rapidly, though, that he was able to travel to [place] the very next day. Since the time of his surgery he has done quite well until recently when he had his both contracted "colds" characterized by nasal congestion, a dry cough, malaise, and typical flu-like symptoms. His went on to recover, but unfortunately the patient did not, and he developed progressively worsening shortness of breath on top of his baseline COPD and then developed a productive cough, fevers, chills, and just generalized weakness. All of these symptoms led him to the emergency department yesterday and he was subsequently admitted with complications of influenza. Rapid flu test done in the ER confirmed that he actually in fact did have influenza A but it was also noted that his chest x-ray showed infiltrates which were concerning for a bacterial pneumonia. Serial procalcitonins were ordered and they have dramatically increased suggesting that he has a significant bacterial superinfection on top of his worsening influenza A. The patient has been started on appropriate antibiotics and ID is consulted regarding additional antibiotic management. The patient tells us he is really ordinarily in quite good health. He has underlying COPD and has had some troubles with AFIB but he is not oxygen dependent and gets around and is very busy at his [facility] home. That all changed with his recent development of a flu-like illness, which proved to be flu, and followed by this acute pneumonia. He notes today that he has a productive cough, shortness of breath which does require oxygen, and he becomes much more dyspneic with any exertion. He has not had any confusion. He denies ongoing significant sore throat. No nausea, vomiting, diarrhea, or symptoms are noted. He does not yet think he is getting better despite being in the hospital for about one day now and getting intravenous azithromycin and ceftriaxone. PAST MEDICAL HISTORY: 1. COPD. 2. Organic heart disease. a. AFIB. b. Pacer. c. 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 3. 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 4. Status post appendectomy for necrotizing appendicitis May 2016. SOCIAL HISTORY: The patient is a retired [employer] placement who has lived in [facility] for 37 years. He is an ex-smoker, who has not smoked in many years. He is a social drinker and not to excess. He and his have traveled to [place] in June; that was their last trip. They have not had any distant or exotic travel in recent years. FAMILY HISTORY: No TB in his parents, siblings, or children. REVIEW OF SYSTEMS: Was done. The patient currently has no headache, no visual complaints. No additional rhinorrhea or sneezing. No sore throat. No stiff neck. The patient continues to have productive cough and shortness of breath at rest and worse with exertion. No nausea, vomiting, diarrhea. No dysuria, urgency, or frequency. No swelling of the joints. Interestingly the patient reports he had inflammation of his right lateral ankle a couple of months ago. A CT scan showed what could have been a small abscess and this was treated with five days of clindamycin and basically resolved. It was never aspirated, nor was the diagnosis established. At this point he really does not have any pain in his ankles on either side and no other joint pain. He has no problems with gait or any neurologic complaints. The remainder of the review of systems is negative. PHYSICAL EXAMINATION: Reveals an afebrile gentleman temperature 36.3, pulse 74, respiratory rate 19, blood pressure 132/71. He is saturating well on 2 L. Examination of the head reveals no evidence of trauma. The eyes without conjunctivitis. The patient's mental status is completely normal. The throat without pharyngitis or thrush. Neck is supple. No adenopathy is noted. No JVD. Pacer in the left upper chest, nontender. Lungs with rales at both bases. Cardiac tones regular rate and rhythm. I do not hear a mechanical valve sound or any significant murmur. The abdomen is soft and nontender. No organomegaly is noted. No suprapubic fullness. He does not have a Lawson catheter. His extremities are without evidence of synovitis, cellulitis, or edema. Neurologically, he is intact. No other abnormalities. LABORATORIES: Include white count 16,400, platelet count 114,000. Some left shift; 93% segs are noted at this point. His procalcitonin last night in the ER was 0.2; this morning 9.34, so clear evidence of a bacterial process. His creatinine 1.01. His LFTs completely normal. Albumin 3.5. Urinalysis without white cells. Urine Legionella antigen negative. Urine pneumococcal antigen negative. Blood cultures negative at 12 hours. A flu screen was positive. IMAGING: Was reviewed. The patient has a chest x-ray which showed bibasilar atelectasis versus pneumonia. I reviewed this film personally on the screen and it looks more to me like likely bilateral pneumonia, but of course this cannot be proven without better imaging. IMPRESSION: This is a pretty healthy 81-year-old gentleman with some [id number] chronic obstructive pulmonary disease as a result of his old smoking history and who has had an aortic valve replacement. He was in his usual state of good health until the just days ago when he and his both developed what was certainly influenza A. His recovered normally but he went on to develop a post influenza A bacterial pneumonia. The likely candidates here are of course Strep pneumoniae and Staph aureus. The urine antigen for pneumococcus is about 70% or 80% sensitive so the fact that it is negative does not exclude this diagnosis. The Staph aureus is perhaps the most feared of the post influenza pneumonias and we have no evidence one way or another regarding this diagnosis. The patient has never had MRSA or been exposed to MRSA to the best of his knowledge, but I think MRSA pneumonia is perhaps the worst of the worst possibilities here and I think we should cover it until we have some more definitive data in this gentleman whose procalcitonin is rapidly increasing and his shortness of breath is really quite severe. Also note that his lactate is elevated at this point, which is another worrisome feature. RECOMMENDATIONS: 1. We have asked for a MRSA screen of the nares. 2. I have ordered a CT scan of the chest without contrast. 3. I have discussed this case in person with the attending, Dr. Coreas. 4. I would add linezolid to his current regimen of azithromycin and ceftriaxone until we have some clarity about the microbiologic etiology of this pneumonia. 5. I will continue to follow this complex patient closely with you. ASHANTI
[2016-09-11] MEDS: predniSONE 20 mg Tablet PO SCH (08:03)
[2016-09-11] MEDS: Tiotropium 18mcg/Cap 5 Capsule Inhaler Kit INHALATION SCH (08:04)
[2016-09-11] MEDS: cefTRIAXone Inj 2,000 MG in Dextrose 5% Minibag Plus 50 ML IV SCH (08:05)
[2016-09-11] MEDS: MOMETASONE TOPICAL SCH ×2 (08:12→22:01)
[2016-09-11] MEDS: [UNRECOGNIZED DRUG - OTHER] TOPICAL SCH ×2 (08:12→22:01)
[2016-09-11] MEDS: FORMOTEROL TOPICAL SCH ×2 (08:12→22:01)
--- NOTE | 2016-09-11 08:28 | PCM.PNMED ---
Subjective Date of Service Sep 11, 2016 Subjective Linezolid was started yesterday. "Walter" continues to have dyspnea with ongoing cough. Exam Vital Signs Vital Sign - Last Date Time Temp Pulse Resp B/P Pulse Ox O2 Delivery O2 Flow Rate FiO2 09/11/16 04:57 90 09/11/16 04:25 36.4 18 151/52 97 Nasal Cannula 2.00 Intake and Output 09/10/16 09/10/16 09/11/16 Cumulative From/Thru 15:00 23:00 07:00 09/09/16 15:02 - 09/11/16 06:07 Intake Total 1937 ml 1382 ml 6728 ml Output Total 1150 ml 400 ml 1700 ml Balance 787 ml 982 ml 5028 ml Intake Oral 736 ml 200 ml 1236 ml IV Total 1201 ml 1182 ml 5492 ml Output Urine Total 1150 ml 400 ml 1700 ml # Bowel Movements 1 2 Exam General: Elderly male resting comfortably in bed with the head of the bed elevated to 45degrees upon my entering the room. Supplemental oxygen given via nasal cannular at 2L/h. No acute distress. HEENT: Moist mucus membranes. Sclera anicteric Cardiac: Irregularly irregular. No murmur, rub, or gallop Lungs: Coarse breath sounds throughout with bibasilar wheezing on both inspiration and expiration. Bibasilar crackles L >R. No rhonchi present. No accessory muscle use or tripoding. Abdomen: Normoactive bowel tones. Soft, nontender and nondistended. Extremities: Trace pitting edema distal to the knees bilaterally. No clubbing or cyanosis present Neuro: Awake, alert, and oriented. Moves all 4 extremities with ease. Observed from room window to ambulate slowly though with ease within the room. Normal speech. Lab and Diagnostics Procalcitonin: 9.44 Result Diagram: 09/11/16 0601 09/11/16 0601 X-Rays, CTs and MRIs CT CHEST WITHOUT CONTRAST: INDICATIONS: pneumonia TECHNIQUE: Noncontrast 5 mm thick sections acquired from the pulmonary apices to the posterior costophrenic angles. 7 mm thick coronal and sagittal MIP reformats were then acquired. For radiation dose reduction, the following was used: automated exposure control, adjustment of mA and/or kV according to patient size. COMPARISON: [facility], CR, XR CHEST 1VW (PORTABLE), 09/09/2016, 16: 01. FINDINGS: Image quality: Excellent. Lungs and pleura: Consolidation in the left lung base, and to a lesser extent within the right middle lobe and lingula. There is also patchy opacities and groundglass attenuation within the dependent right lower lobe. No pneumothorax or pleural effusion. Central airways appear grossly patent. Diffuse scarring noted. There is upper lobe predominant centrilobular emphysema Mediastinum: Heart size is normal. Coronary artery calcifications No pericardial effusion. No mediastinal adenopathy by size criteria. Thoracic aorta and central pulmonary arteries are normal in size. Esophagus is normal in caliber. No hiatal hernia. Bones and chest wall: No suspicious bony lesions. No vertebral body compression fractures. No axillary or supraclavicular adenopathy by size criteria. Thyroid gland negative. Abdomen: Visualized upper abdominal solid organs and bowel loops appear normal in the absence of contrast. IMPRESSION: Multiple areas of consolidation, most prominently within the left lung base in keeping with multifocal pneumonia, and/or aspiration. Recommend clinical correlation and radiographic followup to document resolution Upper lobe predominant centrilobular emphysema. Additional chronic and incidental findings as above Dictated by: Cristian An M.D. on 09/10/2016 at 18:48 Assessment & Plan Kobi is an 81yo male with a COPD on chronic prednisone of 2.5mg daily who presented with worsening dyspnea and profound fatigue which began 2 days prior to admission. He has been admitted for the treatment of influenza A and pneumonia. 1. Acute community acquired pneumonia, present on admission, ongoing - Physical examination, CXR, and procalcitonin are indicative of bacterial pneumonia - CT chest showing multifocal pneumonia - Sputum culture ordered - MRSA screen ordered. Given #2 below, he is a higher risk for MRSA pneumonia - Ceftriaxone and azithromycin to be continued - Linezolid BID, review MRSA screen once results are available - Dr Cavanaugh (infectious disease specialist) providing expertise - DuoNeb q4h PRN - Supplemental oxygen to maintain SPO2 88-92% - Continue to trend procalcitonin 2. Acute influenza A, present on admission - Tamiflu BID for 5 days, today is day #3 of treatment - I suspect his generalized fatigue is do to this and to his pneumonia, will have him work with physical therapy tomorrow 3. Acute exacerbation of COPD - Solu-medrol 125mg given in the ER - Continue prednisone 40mg daily for a 5 day course, then will resume home steroid dosing - Home Spiriva to be continued 4. Sepsis due to influenza and pneumonia, present on admission, resolved - Tachycardia and febrile on presentation to the ER - Received NS IV in the emergency department - See treatment for #1 and #2 above - Blood cultures without growth thus far 5. Chronic Atrial Fibrillation - Rate controlled and on chronic anticoagulation with warfarin - Warfarin dosing and INR checks per pharmacy - Continue home dosing of metoprolol 75mg BID 6. Leukocytosis, worsened - This may be secondary to steroid use, however it may also be attributed to #1 and #2 above, especially given the left shift - Monitor 7. Macrocytic anemia of unknown chronicity, present on admission - Unclear etiology - Vitamin B12 and folate levels do not reflect deficiency - No known liver disease and LFTs are normal - Monitor 8. BPH, chronic, present on admission and stable - Continue home dosing of doxazosin Ondansetron PRN nausea Bowel regimen PRN constipation Disposition: Anticipate discharge in 2-3 days, when medically stable. VTE Prophylaxis: Theraputic Anticoag with Warfarin (INR of 2.09) VTE Mechanical Devices: Intermittant Pneumatic CD Resuscitation Status: CPR: Attempt Resuscitation (Discussed at bedside with the patient) Time spent 30 minutes Attending Statement I have seen and evaluated patient at bedside, in addition to directly supervising care provided by resident physician. I agree with above documentation. Clare Castañeda DO Sep 11, 2016 08:18 Jamaal Coreas DO Sep 11, 2016 15:03
[2016-09-11] MEDS: Azithromycin Inj 500 MG in Dextrose 5% w/Vial Mate 250 ML IV SCH (09:20)
--- NOTE | 2016-09-11 14:27 | PROG NOTE ---
[address] [address] PROGRESS NOTE PATIENT: GAMALIEL MITCHELL : 1935 MR#: [id number] ADMIT: 09/09/2016 JOB ID: [id number] DATE: 09/11/2016 INFECTIOUS DISEASE FOLLOWUP NOTE: REASON FOR FOLLOWUP: Influenza complicated by a bacterial pneumonia process in an elderly gentleman with underlying COPD. INTERVAL HISTORY: Overnight, the patient has felt slightly improved in that he is less short of breath and he has not had any fevers or chills. He still does get short of breath with exertion but, of course, his baseline respiratory status is not perfect. He has not had nausea, vomiting, or diarrhea overnight. PHYSICAL EXAMINATION: Reveals an elderly gentleman, in no acute distress. Temp 36.4, pulse 75, respiratory rate 20, blood pressure 138/69. He is saturating well on 2 L. His mental status is clear. Oral cavity benign. Lungs with rales and wheezes at the left base in particular. Cardiac tones without change. Abdomen soft and nontender. No skin rash noted. LABORATORIES: Include white count, which has actually risen slightly to 17,400, 87% neutrophils. His creatinine is 1.0. LFT totally normal. Procalcitonin was 9.34 yesterday. It is unchanged really today at 9.44. Urinalysis without pyuria. Urine legionella and pneumococcal antigens are negative. MRSA screen is still pending. Respiratory Gram stain, moderate polys, moderate mixed husam growing. Blood cultures negative. Influenza screen was positive. IMAGING: Chest CT that we had ordered yesterday shows multiple areas of consolidation but in particular in the left base. We reviewed his CT scan today carefully. it also shows some emphysema, which is, of course, longstanding. IMPRESSION: Presumably, this patient has a post influenza bacterial pneumonia involving primarily the left lower lobe. So far, he has not gotten a lot better, though he does have some subjective improvement but at least he has not declined in any way. The microbiologic etiology has not been established, and we are still waiting on a methicillin-resistant Staphylococcus aureus screen, so, at this point, he is on linezolid, ceftriaxone and azithromycin. RECOMMENDATIONS: 1. I would continue with these antibiotics for the time being. 2. If his MRSA screen comes back negative later today or tomorrow morning, his linezolid could be stopped, continuing just with ceftriaxone and azithromycin. 3. The patient will need to improve considerably in terms of his functional status and procalcitonin before he is ready to go, but hopefully, that would occur in the next 2-3 days.
[2016-09-12] VITALS (12 sets, daily range): BP systolic 131–169; BP diastolic 66–79; PULSE 62–106; RESP 14–20; O2SAT 90–97
--- NOTE | 2016-09-12 02:25 | NUR ---
sleep patient requested sleeping pill. states "i only sleep 2 hours a night" notified night resident received orders for melatonin 5mg. administered. patient resting at this time. care ongoing.
--- NOTE | 2016-09-12 06:16 | NUR ---
activity patient states "i am worn out after 2 trips to restroom." exp. wheezes. course lungs. productive cough. tolerating oral fluids well. stated "i slept well." explained to patient the importance of slowly building activity for improved stamina. patient verbalized understanding.
[2016-09-12 06:58] LABS: BASOPHILS % (AUTO) 0 % (0-3); EOSINOPHILS % (AUTO) 0 % (0-5); MONOCYTES % (AUTO) 4.7 % (4-12); Mean Corpuscular Hemoglobin 33.6 pg (27.0-35.0); Mean Corpuscular Volume 103.7 fL (81-100); NEUTROPHILS % (AUTO) 87.9 % (40-74); Platelet Count 148 bil/L (150-400)
[2016-09-12 07:28] LABS: INR 2.11 ratio
[2016-09-12] MEDS: predniSONE 20 mg Tablet PO SCH (09:25)
[2016-09-12] MEDS: Tiotropium 18mcg/Cap 5 Capsule Inhaler Kit INHALATION SCH (09:28)
[2016-09-12] MEDS: FORMOTEROL TOPICAL SCH ×2 (09:28→20:15)
[2016-09-12] MEDS: [UNRECOGNIZED DRUG - OTHER] TOPICAL SCH ×2 (09:28→20:15)
[2016-09-12] MEDS: cefTRIAXone Inj 2,000 MG in Dextrose 5% Minibag Plus 50 ML IV SCH (09:28)
[2016-09-12] MEDS: MOMETASONE TOPICAL SCH ×2 (09:28→20:15)
[2016-09-12] MEDS: Azithromycin Inj 500 MG in Dextrose 5% w/Vial Mate 250 ML IV SCH (10:27)
--- NOTE | 2016-09-12 11:04 | PCM.PHAPRO ---
Progress Date of Service: Sep 12, 2016 Warfarin dosing A/ INR is therapeutic at 2.11 P/ Continue with 2mg today and follow. Tyron Mina Sep 12, 2016 11:04
--- NOTE | 2016-09-12 11:26 | PCM.PNMED ---
Subjective Date of Service Sep 12, 2016 Subjective Bill reports he is doing somewhat better today. He still has a cough and is still SOB with exertion. He has not had any fevers or CP. He is tolerating PO intake well. He has been using his IS frequently. Exam Vital Signs Vital Sign - Last Date Time Temp Pulse Resp B/P Pulse Ox O2 Delivery O2 Flow Rate FiO2 09/12/16 05:59 81 09/12/16 05:46 36.3 18 163/79 97 Nasal Cannula 2.00 Intake and Output 09/11/16 09/11/16 09/12/16 Cumulative From/Thru 15:00 23:00 07:00 09/09/16 15:02 - 09/12/16 06:17 Intake Total 320 ml 200 ml 7248 ml Output Total 525 ml 450 ml 2675 ml Balance -205 ml -250 ml 4573 ml Intake Oral 320 ml 200 ml 1756 ml IV Total 5492 ml Output Urine Total 525 ml 450 ml 2675 ml # Bowel Movements 1 3 Exam General: Elderly male resting comfortably in bed. Supplemental oxygen given via nasal cannular at 2L/h. No acute distress. HEENT: Moist mucus membranes. Sclera anicteric Cardiac: Irregularly irregular. mild systolic murmur noted, no rub, or gallop Lungs: Bibasilar rales with mild bilateral wheezing noted. No rhonchi present. Normal breathing effort Abdomen: Normoactive bowel tones. Soft, nontender and nondistended. Extremities: Trace pitting edema distal to the knees bilaterally. No clubbing or cyanosis present Neuro: Awake, alert, and oriented. No focal weakness, conversive and fluent, speaking full sentences IVs and Medications Medications Reviewed: Medications were reviewed in detail Lab and Diagnostics Result Diagram: 09/11/16 0609/11/16 06 X-Rays, CTs and MRIs CT CHEST WITHOUT CONTRAST: INDICATIONS: pneumonia TECHNIQUE: Noncontrast 5 mm thick sections acquired from the pulmonary apices to the posterior costophrenic angles. 7 mm thick coronal and sagittal MIP reformats were then acquired. For radiation dose reduction, the following was used: automated exposure control, adjustment of mA and/or kV according to patient size. COMPARISON: [facility], CR, XR CHEST 1VW (PORTABLE), 09/09/2016, 16: 01. FINDINGS: Image quality: Excellent. Lungs and pleura: Consolidation in the left lung base, and to a lesser extent within the right middle lobe and lingula. There is also patchy opacities and groundglass attenuation within the dependent right lower lobe. No pneumothorax or pleural effusion. Central airways appear grossly patent. Diffuse scarring noted. There is upper lobe predominant centrilobular emphysema Mediastinum: Heart size is normal. Coronary artery calcifications No pericardial effusion. No mediastinal adenopathy by size criteria. Thoracic aorta and central pulmonary arteries are normal in size. Esophagus is normal in caliber. No hiatal hernia. Bones and chest wall: No suspicious bony lesions. No vertebral body compression fractures. No axillary or supraclavicular adenopathy by size criteria. Thyroid gland negative. Abdomen: Visualized upper abdominal solid organs and bowel loops appear normal in the absence of contrast. IMPRESSION: Multiple areas of consolidation, most prominently within the left lung base in keeping with multifocal pneumonia, and/or aspiration. Recommend clinical correlation and radiographic followup to document resolution Upper lobe predominant centrilobular emphysema. Additional chronic and incidental findings as above Dictated by: Cristian An M.D. on 09/10/2016 at 18:48 Assessment & Plan Kobi is an 81yo male with Chronic Afib and COPD on chronic prednisone of 2.5mg daily who presented with worsening dyspnea and profound fatigue which began 2 days prior to admission. He has been admitted for the treatment of influenza A and pneumonia. 1. Acute community acquired pneumonia, present on admission, ongoing - Physical examination, CXR, and procalcitonin are indicative of bacterial pneumonia - CT chest showing bilateral multifocal pneumonia - Sputum culture pending - MRSA screen negative. So his Zyvox PO was discontinued - Ceftriaxone and azithromycin to be continued (started on 09/10) - Dr Cavanaugh (infectious disease specialist) providing expertise, Appreciate time and recs - Giovanni VALENZUELA to help clear his lungs up - Supplemental oxygen to maintain SPO2 88-92% - Continue to trend procalcitonin- which have been improving 2. Acute influenza A, present on admission - Tamiflu BID for 5 days, (started 09/10) - Physical Therapy ordered 3. Acute exacerbation of COPD, POA - Solu-medrol 125mg given in the ER (09/10) - Continue prednisone 40mg daily for a 5 day course, then will resume home steroid dosing - Home Spiriva to be continued 4. Sepsis due to influenza and pneumonia, present on admission, resolved - Tachycardia and febrile on presentation to the ER - Received NS IV in the emergency department - See treatment for #1 and #2 above - Blood cultures without growth thus far 5. Chronic Atrial Fibrillation - Rate controlled and on chronic anticoagulation with warfarin - Warfarin dosing and INR checks per pharmacy - INR therapeutic - Continue home dosing of metoprolol 75mg BID - Stable 6. Leukocytosis,Improving - Likely is still mildy elevated due to Steroid usage, continue to follow differential and Procalcitonin - Monitor 7. Macrocytic anemia of unknown chronicity, present on admission - Unclear etiology - Vitamin B12 and folate levels WNL - No known liver disease and LFTs are normal - Monitor and follow up as OUTpatient 8. BPH, chronic, present on admission and stable - Continue home dosing of doxazosin Ondansetron PRN nausea Bowel regimen PRN constipation Disposition: Anticipate discharge in 1-2 days if stable Pain Evaluation: Adequate Pain Control VTE Prophylaxis: Theraputic Anticoag with Warfarin (INR of 2.09) VTE Mechanical Devices: Intermittant Pneumatic CD Resuscitation Status: CPR: Attempt Resuscitation (Discussed at bedside with the patient) Attending Statement I have seen and evaluated Mr. morales at his bedside, in addition to directly supervising the care provided by the resident physician. I agree with the above documentation which accurately reflects my exam, findings, plans. Jeff Reese M.D., DO Sep 12, 2016 07:01 Jaimie Vance MD Sep 12, 2016 11:45
--- NOTE | 2016-09-12 15:21 | NUR ---
Evaluation completed. Please go to "Notes" then click on "Assessments and Notes" (bottom left corner of screen). Then select appropriate discipline tab on top of screen.
--- NOTE | 2016-09-12 15:24 | NUR ---
Oxygen P: Patient's SpO2 96% on 2L via nasal cannula. I: Titrated oxygen down to 1L per primary RN. E: Upon reassessment, patient appeared to be tolerating 1L via nasal cannula and SpO2 was 97%.
[2016-09-12] MEDS: Albuterol-Ipratropium 3 mL Inhalation Solution NEB SCH ×2 (17:05→20:55)
--- NOTE | 2016-09-12 17:35 | PROG NOTE ---
[address] [address] PROGRESS NOTE PATIENT: GAMALIEL MITCHELL : 1935 MR#: [id number] ADMIT: 09/09/2016 JOB ID: [id number] DATE: 09/12/2016 INFECTIOUS DISEASE FOLLOWUP NOTE: REASON FOR FOLLOWUP: Influenza complicated by bacterial pneumonia. INTERVAL HISTORY: The patient reports that this is his first really good day. They have been able to wean his oxygen down to 1 L and he has been less and less short of breath. He tells me he has been walking around the room some today without any of the dyspnea that characterized his first couple of days here in the hospital. He has had no fevers or chills. His cough is diminished and his shortness of breath, of course, is much better. No nausea or vomiting. He did have one loose stool today. PHYSICAL EXAMINATION: Reveals an afebrile gentleman temperature 36.3, pulse 62, respiratory rate 18, blood pressure 131/70, saturating well on 1 L. He is in no acute distress. His oral cavity is unremarkable. His lungs have decreased breath sounds bilaterally, but no rales or rhonchi are heard. Cardiac tones without change. No new murmur. Abdomen benign. No skin rash. LABORATORIES: Include a white count of 15,000 which is slowly improving, 88% polys. His creatinine is 0.94. LFTs are normal. His procalcitonin was 9 and has now dropped to 5.4. Urinalysis negative. Urine Legionella and urine pneumococcal antigens are negative. Blood cultures negative. MRSA screen negative. IMAGING: Recall that the CT scan done back on the showed multifocal pneumonia with emphysema. IMPRESSION: This patient is steadily improving at this point. His linezolid was dropped as we had recommended as his MRSA screen came back negative. At this point I think it is reasonable to treat him for 5-7 days in accordance with the current guidelines, depending on his procalcitonin. RECOMMENDATIONS: 1. I would continue with azithromycin and ceftriaxone for the time being. 2. I would check a procalcitonin on a daily basis and continue with his antibiotics for at least a couple more days until his procalcitonin is considerably diminished from its peak of 9.4. Infectious Disease will continue to follow.
--- NOTE | 2016-09-12 20:25 | NUR ---
Refusing SCD's up with pt and walking hallway, disrupts sleep
[2016-09-13] VITALS (13 sets, daily range): BP systolic 113–194; BP diastolic 56–83; PULSE 64–118; RESP 16–20; O2SAT 88–97
[2016-09-13 06:29] LABS: BASOPHILS % (AUTO) 0.1 % (0-3); EOSINOPHILS % (AUTO) 0 % (0-5); Mean Corpuscular Hemoglobin 32.9 pg (27.0-35.0); Mean Corpuscular Volume 102.3 fL (81-100); NEUTROPHILS % (AUTO) 86.4 % (40-74); Platelet Count 157 bil/L (150-400)
--- NOTE | 2016-09-13 06:51 | NUR ---
Melatonin After taking melatonin 5mg for two nights patient indicates he woke up disoriented each time. Tonight the [employer]BILE DES[employer] called me into the room with patient on side of bed indicating: "I need to get going to make my appointment". Reoriented to time/place/day. Established VSS with Neuro check negative for any deficits. Patient quickly established his meeting was not on Wednesday and that he was looking at the minute hand instead of hour hand on clock.
[2016-09-13 07:09] LABS: INR 2.93 ratio
[2016-09-13] MEDS: MOMETASONE TOPICAL SCH ×2 (08:01→20:30)
[2016-09-13] MEDS: FORMOTEROL TOPICAL SCH ×2 (08:01→20:30)
[2016-09-13] MEDS: Tiotropium 18mcg/Cap 5 Capsule Inhaler Kit INHALATION SCH (08:01)
[2016-09-13] MEDS: [UNRECOGNIZED DRUG - OTHER] TOPICAL SCH ×2 (08:01→20:30)
[2016-09-13] MEDS: cefTRIAXone Inj 2,000 MG in Dextrose 5% Minibag Plus 50 ML IV SCH (08:02)
[2016-09-13] MEDS: predniSONE 20 mg Tablet PO SCH (08:02)
[2016-09-13] MEDS: Albuterol-Ipratropium 3 mL Inhalation Solution NEB SCH ×3 (08:56→20:50)
[2016-09-13] MEDS: Azithromycin Inj 500 MG in Dextrose 5% w/Vial Mate 250 ML IV SCH (09:00)
--- NOTE | 2016-09-13 09:25 | NUR ---
KATI signed DARRIN San
--- NOTE | 2016-09-13 09:49 | PCM.PHAPRO ---
Progress Date of Service: Sep 13, 2016 Warfarin dosing A/ INR is therapeutic at 2.98. This is a sharp increase from yesterday (2.11), possibly due to azithromycin's drug-drug interaction with warfarin. P/ Hold warfarin dose today and follow. Tyron Mina Sep 13, 2016 09:49
--- NOTE | 2016-09-13 11:14 | NUR ---
Social Work: Readiness for d/c Data: Pt is on day 4 of hospitalization. EMR reviewed, pt discussed in rounds. MD state pt likely to d/c tomorrow. APPLIQUER ZIGZAG met with pt and family, discussed PT recommendations of pt going home with outpt PT. Pt agreeable to this. No further d/c planning needs identified at this time. APPLIQUER ZIGZAG will continue to follow if needs arise. Assessment: Pt who is independent at baseline. Plan: Pt will d/c home via POV when medically stable, likely tomorrow, with outpt PT. No further d/c planning needs identified at this time. APPLIQUER ZIGZAG will continue to follow if needs arise. DARRIN San
--- NOTE | 2016-09-13 18:06 | NUR ---
Oxygen saturations Patient oxygen saturations were 89% on RA while sitting at side of bed. Patient was reassessed later and while lying in bed saturations were 92%. Patient does become SOB with exertion.
--- NOTE | 2016-09-13 18:45 | NUR ---
Diarrhea Patient has reported diarrhea X 3 today. Nurse paged MD and notified MD of patient having diarrhea. Awaiting MD response.
--- NOTE | 2016-09-13 19:40 | PCM.PNMED ---
Subjective Date of Service Sep 13, 2016 Subjective No overnight events. cough continues overall though, felling better Patient is still on O2. Not normally on on O2. Patient currently on azithromycin, ceftriaxone, Tamiflu, metoprolol tartrate 75 mg twice a day, lisinopril 20 mg daily, and prednisone 40 mg daily Exam Vital Signs Vital Sign - Last Date Time Temp Pulse Resp B/P Pulse Ox O2 Delivery O2 Flow Rate FiO2 09/13/16 06:35 64 179/73 97 Nasal Cannula 1.00 09/13/16 06:07 36.4 16 Intake and Output 09/12/16 09/12/16 09/13/16 Cumulative From/Thru 15:00 23:00 07:00 09/09/16 15:02 - 09/13/16 06:32 Intake Total 770 ml 200 ml 8218 ml Output Total 450 ml 775 ml 3900 ml Balance 320 ml -575 ml 4318 ml Intake Oral 400 ml 200 ml 2356 ml IV Total 370 ml 5862 ml Output Urine Total 450 ml 775 ml 3900 ml # Bowel Movements 0 3 Exam Gen: Lying comfortably at 30degree head tilt HEENT: PERRLA, Anicteric sclerae, moist conjunctivae, and no lid lag. Neck: supple, no JVD Cardio: Irregularly irregular, mild systolic heart murmur, rub or gallop Pulm: b/l air sound, mild crackle in the lower bases, mild wheezes, no coarse breathing. Abd: positive bowel tone. Soft, nontender, nondistended. Extremities: No clubbing, cyanosis, edema, or lymphadenopathy appreciated. Skin: Normal temperature, turgor, and texture; no rash, ulcers, or subcutaneous nodules appreciated. Neuro: Cranial nerves grossly intact. moving equally on all four limbs. Psyc: Normal mood and affect. AoX3 IVs and Medications Medications Reviewed: Medications were reviewed in detail Lab and Diagnostics Result Diagram: 09/13/1654409/13/16544 X-Rays, CTs and MRIs CT CHEST WITHOUT CONTRAST: INDICATIONS: pneumonia TECHNIQUE: Noncontrast 5 mm thick sections acquired from the pulmonary apices to the posterior costophrenic angles. 7 mm thick coronal and sagittal MIP reformats were then acquired. For radiation dose reduction, the following was used: automated exposure control, adjustment of mA and/or kV according to patient size. COMPARISON: [facility], CR, XR CHEST 1VW (PORTABLE), 09/09/2016, 16: 01. FINDINGS: Image quality: Excellent. Lungs and pleura: Consolidation in the left lung base, and to a lesser extent within the right middle lobe and lingula. There is also patchy opacities and groundglass attenuation within the dependent right lower lobe. No pneumothorax or pleural effusion. Central airways appear grossly patent. Diffuse scarring noted. There is upper lobe predominant centrilobular emphysema Mediastinum: Heart size is normal. Coronary artery calcifications No pericardial effusion. No mediastinal adenopathy by size criteria. Thoracic aorta and central pulmonary arteries are normal in size. Esophagus is normal in caliber. No hiatal hernia. Bones and chest wall: No suspicious bony lesions. No vertebral body compression fractures. No axillary or supraclavicular adenopathy by size criteria. Thyroid gland negative. Abdomen: Visualized upper abdominal solid organs and bowel loops appear normal in the absence of contrast. IMPRESSION: Multiple areas of consolidation, most prominently within the left lung base in keeping with multifocal pneumonia, and/or aspiration. Recommend clinical correlation and radiographic followup to document resolution Upper lobe predominant centrilobular emphysema. Additional chronic and incidental findings as above Dictated by: Cristian An M.D. on 09/10/2016 at 18:48 Assessment & Plan Kobi is an 81yo male with Chronic Afib and COPD on chronic prednisone of 2.5mg daily who presented with worsening dyspnea and profound fatigue which began 2 days prior to admission. He has been admitted for the treatment of influenza A and pneumonia. 1. Acute community acquired pneumonia, present on admission, ongoing - Physical examination, CXR, and procalcitonin are indicative of bacterial pneumonia - CT chest showing bilateral multifocal pneumonia - Sputum culture pending - MRSA screen negative. So his Zyvox PO was discontinued - Ceftriaxone and azithromycin to be continued (started on 09/10) - Dr Cavanaugh (infectious disease specialist) providing expertise, Appreciate time and recs - Giovanni VALENZUELA to help clear his lungs up - Supplemental oxygen to maintain SPO2 88-92% - Continue to trend procalcitonin- which have been improving 2. Acute influenza A, present on admission - Tamiflu BID for 5 days, (started 09/10) - Physical Therapy ordered 3. Acute exacerbation of COPD, POA - Solu-medrol 125mg given in the ER (09/10) - Continue prednisone 40mg daily for a 5 day course, then will resume home steroid dosing - Home Spiriva to be continued 4. Sepsis due to influenza and pneumonia, present on admission, resolved - Tachycardia and febrile on presentation to the ER - Received NS IV in the emergency department - See treatment for #1 and #2 above - Blood cultures without growth thus far 5. Chronic Atrial Fibrillation - Rate controlled and on chronic anticoagulation with warfarin - Warfarin dosing and INR checks per pharmacy - INR therapeutic - Continue home dosing of metoprolol 75mg BID - Stable 6. Leukocytosis,Improving - Likely is still mildy elevated due to Steroid usage, continue to follow differential and Procalcitonin - Monitor 7. Macrocytic anemia of unknown chronicity, present on admission - Unclear etiology - Vitamin B12 and folate levels WNL - No known liver disease and LFTs are normal - Monitor and follow up as OUTpatient 8. BPH, chronic, present on admission and stable - Continue home dosing of doxazosin 9. Essential hypertension, present on admission, active -- continue metoprolol 75 mg twice a day and lisinopril 20 mg daily -- added 2.5 mg amlodipine Ondansetron PRN nausea Bowel regimen PRN constipation Disposition: Protocol to determine continually improving, will likely discharge patient tomorrow VTE Prophylaxis: Theraputic Anticoag with Warfarin (INR of 2.09) VTE Mechanical Devices: Intermittant Pneumatic CD Resuscitation Status: CPR: Attempt Resuscitation (Discussed at bedside with the patient) Attending Statement I saw Mr. Gonsales with the resident physician. My exam/assessment/plan are as described above. Thomas Vance MD [facility] H DO Sep 13, 2016 08:46 Jaimie Vance MD Sep 13, 2016 20:46
[2016-09-14 01:26] VITALS: BP 179/87; PULSE 76; RESP 20; O2SAT 92
[2016-09-14] MEDS: Albuterol-Ipratropium 3 mL Inhalation Solution NEB SCH ×2 (06:00→11:00)
--- NOTE | 2016-09-14 06:41 | NUR ---
BMs: Pt has had 4 loose bowel movements through the night. Stool sample was sent to the lab for a PCR stool order that was received. That BM was not liquid, but loose and not formed.
[2016-09-14 06:55] LABS: BASOPHILS % (AUTO) 0.1 % (0-3); EOSINOPHILS % (AUTO) 0.4 % (0-5); MONOCYTES % (AUTO) 8.1 % (4-12); Mean Corpuscular Hemoglobin 33.5 pg (27.0-35.0); Mean Corpuscular Volume 101.7 fL (81-100); NEUTROPHILS % (AUTO) 77.1 % (40-74); Platelet Count 197 bil/L (150-400)
[2016-09-14 07:02] LABS: INR 3.11 ratio
[2016-09-14 07:18] VITALS: BP 174/83; PULSE 74; RESP 20; O2SAT 91
[2016-09-14 09:20] VITALS: PULSE 80; RESP 20; O2SAT 92
[2016-09-14] MEDS: predniSONE 20 mg Tablet PO SCH (09:26)
[2016-09-14] MEDS: Tiotropium 18mcg/Cap 5 Capsule Inhaler Kit INHALATION SCH (09:27)
[2016-09-14] MEDS: cefTRIAXone Inj 2,000 MG in Dextrose 5% Minibag Plus 50 ML IV SCH (09:30)
[2016-09-14] MEDS: MOMETASONE TOPICAL SCH (09:33)
[2016-09-14] MEDS: [UNRECOGNIZED DRUG - OTHER] TOPICAL SCH (09:33)
[2016-09-14] MEDS: FORMOTEROL TOPICAL SCH (09:33)
[2016-09-14] MEDS: Azithromycin Inj 500 MG in Dextrose 5% w/Vial Mate 250 ML IV SCH (10:53)
[2016-09-14 11:12] VITALS: BP 131/70; PULSE 75; RESP 20; O2SAT 93
[2016-09-14 11:29] VITALS: PULSE 83
[2016-09-14 12:50] VITALS: PULSE 79; RESP 20; O2SAT 93
[2016-09-14] MEDS ORDERED: CEFD300C3 PO (14:33)
--- NOTE | 2016-09-14 14:44 | PCM.DIMED ---
Zelda Reyna DO 09/14/16 1443: Discharge Instructions Date of Service Sep 14, 2016 Dates of Hospitalization Sep 09, 2016 at 17:41 Discharge Diagnosis Discharge Diagnosis Acute community acquired pneumonia, present on admission. Treated. Acute influenza A, present on admission. Treated. Acute exacerbation of COPD, present on admission. Treated. Sepsis due to influenza and pneumonia, present on admission. Resolved. Chronic Atrial Fibrillation rate controlled and on chronic anticoagulation with warfarin Acute on chronic leukocytosis, acute portion secondary to infection which has resolved. Chronic portion secondary to chronic steroid use. Macrocytic anemia of unknown chronicity, present on admission. Stable. BPH, chronic, present on admission. Stable. Essential hypertension, present on admission. Stable. . Medication Instructions Continued medications: Albuterol 2 puffs every 4 hours as needed for shortness of breath. Vitamin C 1000 mg daily. Foltx tablet daily. Doxazosin 4 mg daily. Lisinopril 20 mg daily. Metoprolol tartrate 75 mg twice a day. Dulera 2 puffs inhaled twice a day. Prednisone 5 mg daily. Spiriva 18 g inhaled daily. CoQ10 10 mg daily. Warfarin as directed by [facility]. New medications: Cefdinir 300 mg twice a day 3 days. . Diet Heart Healthy Activity No restrictions, Outpatient Physical Therapy Call your provider Fever or Chills, Shortness of breath, Weakness (unilateral) Patient Instructions Please follow closely with her primary care physician, Dr. Plascencia or his PA , regarding your recent hospitalization for cellulitis. It is recommended a follow-up with outpatient physical therapy for increased strength and mobilization. . Follow-up with PCP in: 1 week Jamaal Coreas DO 09/14/16 1640: Discharge Instructions Attending's Statement Read and agree Zelda Reyna DO Sep 14, 2016 14:43 Jamaal Coreas DO Sep 14, 2016 16:40
--- NOTE | 2016-09-14 14:59 | NUR ---
Social Work-discharge: Data:EMR Reviewed. Pt is on day 5 of hospitalization for pneumonia per H&P. Pt is medically stable to discharge home today. PT has cleared pt for home with outpt PT. Pt's to provide transport home. No discharge needs identified. All updated and agreeable to plan. Assessment:Pt who is independent at baseline. Plan:Pt to discharge home today via POV. No discharge needs identified. All updated and agreeable to plan. DARRIN Nobles
--- NOTE | 2016-09-14 15:44 | NUR ---
Discharge Pt discharged at this time, No complains of pain, SOB or chest discomfrt. VSS. All belongings gathered and returned to pt. Pt home med returned to pt. IV D/Cd intact, tele monitor removed. Discharge packet printed and reviewed with pt and spouse. Pt taken from [place] by DOMITILA in wheelchair to be transported home in private vehicle driven by spouse.
--- NOTE | 2016-09-14 17:52 | PROG NOTE ---
[address] [address] PROGRESS NOTE PATIENT: GAMALIEL MITCHELL : 1935 MR#: [id number] ADMIT: 09/09/2016 JOB ID: [id number] DATE: 09/14/2016 INTERVAL HISTORY: Over the weekend, the patient has improved dramatically. He is no longer using oxygen and reports his cough and shortness of breath have essentially resolved. At this point, he is hoping he will be discharged later today. He did have some diarrhea and tells me that some studies were done, and came back negative but the diarrhea is not disabling or severe. There is no nausea or vomiting and he is able to eat well. PHYSICAL EXAMINATION: Reveals an afebrile gentleman, temperature 36.7, pulse 69, respiratory rate 20, blood pressure 131/70. He is saturating well on room air. Examination of the head reveals no trauma. The oral cavity without thrush or hairy leukoplakia. The lungs with some crackles and decreased breath sounds at the bases but overall better than on admission. Cardiac tones: Regular rate and rhythm. No murmur. Abdomen benign. No skin rash. LABORATORIES: Include white count 10,900, platelet count 197,000, creatinine 0.99. Procalcitonin has been coming down from 9.4 four days ago to 5.4-2.7 yesterday to 1.46 today. Micro studies have been entirely negative including a stool for multiplex PCR that was done yesterday. The only positive we have is a nasal swab for influenza which was negative on admission. IMPRESSION: This is a relatively healthy, 81-year-old gentleman with underlying chronic obstructive pulmonary disease who was admitted with influenza and a secondary bacterial pneumonia as evidenced by his high procalcitonin and other laboratory markers. He has improved very steadily since his admission and is now at the point where he could reasonably be discharged. He has received now six days of azithromycin and this can be stopped and I have written that order. He can be discharged at any time on an oral cephalosporin to finish up basically a week or so of therapy, so I would prescribe two or three days more of an oral cephalosporin such as oral cefdinir to complete his therapy. RECOMMENDATIONS: 1. DC azithromycin. 2. Continue ceftriaxone as long as he is here, but I think he could be discharged even this afternoon. 3. Outpatient antibiotic would be cefdinir for about three more days at standard dosing. 4. ID will go ahead and sign off at this time.
--- NOTE | 2016-09-15 18:42 | PCM.DC.MED ---
Discharge Summary Date of Service Sep 15, 2016 Dates of Hospitalization Date of Hospital Admission Sep 09, 2016 at 17:41 Date of Discharge: Sep 15, 2016 Providers: Admitting Physician: Jennifer Meadows MD Primary Care Physician: Brandon Carbajal MD Attending Physician: Jennifer Meadows MD Diagnosis at Time of Discharge Diagnosis at Time of Discharge Acute community acquired pneumonia, present on admission. Treated. Acute influenza A, present on admission. Treated. Acute exacerbation of COPD, present on admission. Treated. Sepsis due to influenza and pneumonia, present on admission. Resolved. Chronic Atrial Fibrillation rate controlled and on chronic anticoagulation with warfarin Acute on chronic leukocytosis, acute portion secondary to infection which has resolved. Chronic portion secondary to chronic steroid use. Macrocytic anemia of unknown chronicity, present on admission. Stable. BPH, chronic, present on admission. Stable. Essential hypertension, present on admission. Stable. . Consultations Infectious Disease Procedures XRay, CTs & MRIs CT CHEST WITHOUT CONTRAST: INDICATIONS: pneumonia TECHNIQUE: Noncontrast 5 mm thick sections acquired from the pulmonary apices to the posterior costophrenic angles. 7 mm thick coronal and sagittal MIP reformats were then acquired. For radiation dose reduction, the following was used: automated exposure control, adjustment of mA and/or kV according to patient size. COMPARISON: [facility], CR, XR CHEST 1VW (PORTABLE), 09/09/2016, 16: 01. FINDINGS: Image quality: Excellent. Lungs and pleura: Consolidation in the left lung base, and to a lesser extent within the right middle lobe and lingula. There is also patchy opacities and groundglass attenuation within the dependent right lower lobe. No pneumothorax or pleural effusion. Central airways appear grossly patent. Diffuse scarring noted. There is upper lobe predominant centrilobular emphysema Mediastinum: Heart size is normal. Coronary artery calcifications No pericardial effusion. No mediastinal adenopathy by size criteria. Thoracic aorta and central pulmonary arteries are normal in size. Esophagus is normal in caliber. No hiatal hernia. Bones and chest wall: No suspicious bony lesions. No vertebral body compression fractures. No axillary or supraclavicular adenopathy by size criteria. Thyroid gland negative. Abdomen: Visualized upper abdominal solid organs and bowel loops appear normal in the absence of contrast. IMPRESSION: Multiple areas of consolidation, most prominently within the left lung base in keeping with multifocal pneumonia, and/or aspiration. Recommend clinical correlation and radiographic followup to document resolution Upper lobe predominant centrilobular emphysema. Additional chronic and incidental findings as above Dictated by: Cristian An M.D. on 09/10/2016 at 18:[address] Meadows's H&P from 09/09/2016 "81 year old male with COPD, not on home O2, never has intubated in the past, on tripple nebs, atrial fibrillation, anticoagulated on warfarin p/w acute worsening of SOB, cough, chills. Patient was usual state of health until 2 days ago, patient started feeling that catching a cold, cough, mild difficulty breathing. Patient Using his inhalers, did not increase the usage of albuterol, today, patient was really short of breath even with minimal exertion at home, also noticed some nasal congestion, cough has gotten worse, but unable to cough up any sputum, also had some chills but did not take the temperature, decided to come to the hospital. Of note, patient was prescribed clindamycin for right ankle possible 'MRSA infection" by his PCP Dr. Carbajal, finished taking antibiotics 2 days ago. Patient did not recall any sick contact. Patient is he is taking chronic steroids for arthritis, 2.5mg daily ROS: Currently Patient denied fever, chills, dysuria, frequency, urgency, chest pain, palpitation, nausea, vomiting, abdominal pain, diarrhea, constipation. in ED, VS 152/78, 104, 22, 39.4 febrile, 88% on RA, 96% on RA, Flu swab was positive for influenza A virus" Hospital Course Kobi is an 81yo male with Chronic Afib and COPD on chronic prednisone of 2.5mg daily who presented with worsening dyspnea and profound fatigue which began 2 days prior to admission. He has been admitted for the treatment of influenza A and pneumonia. 1. Acute community acquired pneumonia, present on admission, ongoing - Physical examination, CXR, and procalcitonin indicative of bacterial pneumonia - CT chest showing bilateral multifocal pneumonia - Sputum culture negative - MRSA screen negative. - Discharged on cefdinir for 3 days 2. Acute influenza A, present on admission - Tamiflu BID for 5 days 3. Acute exacerbation of COPD, POA - Home Spiriva to be continued 4. Sepsis due to influenza and pneumonia, present on admission, resolved - Tachycardia and febrile on presentation to the ER - See treatment for #1 and #2 above - Blood cultures without growth 5. Chronic Atrial Fibrillation - Rate controlled and on chronic anticoagulation with warfarin - Continue home dosing of metoprolol 75mg BID 6. Leukocytosis,Improving 7. Macrocytic anemia of unknown chronicity, present on admission - Vitamin B12 and folate levels WNL - No known liver disease and LFTs are normal - Monitor and follow up as Outpatient 8. BPH, chronic, present on admission and stable - Continue home dosing of doxazosin 9. Essential hypertension, present on admission, active -- continue metoprolol 75 mg twice a day and lisinopril 20 mg daily -- added 2.5 mg amlodipine Exam Vital Signs (Last) Date Time Temp Pulse Resp B/P Pulse Ox O2 Delivery O2 Flow Rate FiO2 09/14/16 13:42 Room Air 09/14/16 12:50 79 20 93 09/14/16 11:12 36.7 131/70 09/13/16 06:35 1.00 Exam General: No acute distress, well-developed, well-nourished, appropriately interactive HEENT: Normocephalic, atraumatic. External ears without defect. Pupils equal, round, and reactive to light and accommodation.Oropharynx with moist mucosa. Neck: Supple with full range of motion. Cardiovascular: Regular rate and rhythm with no murmurs, rubs, or gallops appreciated Pulmonary: Bilateral crackles at the bases, some mild expiratory wheezes bilaterally as well. Normal respiratory effort with no use of accessory muscles. Abdomen: Bowel tones present. Soft, nontender, nondistended. Extremities: No clubbing, cyanosis, edema, or lymphadenopathy appreciated. Skin: Normal temperature, turgor, and texture; no rash, ulcers, or subcutaneous nodules appreciated. Psychiatric: Normal mood and affect. Alert and oriented to person, place, and time. Test 09/09/16 15:34 09/09/16 16:01 09/09/16 16:36 09/09/16 22:30 Troponin T < 0.010ug/L (0.0-0.011) Pro-B-Type Natriuretic Peptide 491.9pg/mL (0-486) Urine Color Yellow (YELLOW) Urine Appearance Clear (CLEAR,HAZY) Urine pH 5.5 (5.0-8.0) Urine Specific [place] 1.025 (1.003-1.035) Urine Protein Negativemg/dL (NEG,TRACE) Urine Glucose (UA) Negativemg/dL (NEGATIVE) Urine Ketones Negativemg/dL (NEGATIVE) Urine Occult Blood Negative (NEGATIVE) Urine Nitrite Negative (NEGATIVE) Urine Bilirubin Negative (NEGATIVE) Urine Urobilinogen Normalmg/dL (NORMAL) Urine Leukocyte Esterase Negative (NEGATIVE) Urine RBC 0-2/hpf (0-2) Urine WBC 0-5/hpf (0-5) Urine Epithelial Cells None/hpf (NONE-MOD) Urine Crystals None seen (NONE SEEN) Urine Bacteria Few/hpf (NONE-FEW) Urine Hyaline Casts None/lpf (NONE) Urine Granular Casts None seen (NONE SEEN) Urine Waxy Casts None seen (NONE SEEN) Urine Red Blood Cell Casts None seen (NONE SEEN) Urine White Blood Cell Casts None seen (NONE SEEN) Urine Mucus None seen (None Seen) Urine Trichomonas None seen (NONE SEEN) Urine Yeast None (NONE SEEN) Urinalysis Comment None Urine Culture Reflexed Not indicated Hold Urine Received (Received) Urine Legionella pneumophilia Ag Negative (Negative) Test 09/10/16 05:28 09/10/16 13:00 09/10/16 19:52 09/11/16 06:01 Phosphorus Level 4.4mg/dL (2.5-4.9) Magnesium Level 1.8mg/dL (1.6-2.6) Vitamin B12 Level 1132pg/mL (211-946) Folate 10.9ng/mL (>3.0) Lactic Acid Level 2.0mmol/L (0.4-2.0) Total Bilirubin 0.3mg/dL (0.0-1.2) Aspartate Amino Transf (AST/SGOT) 33U/L (0-50) Alanine Aminotransferase (ALT/SGPT) 28U/L (0-44) Alkaline Phosphatase 51U/L (25-160) Total Protein 5.7g/dL (6.4-8.4) Albumin 3.3g/dL (3.4-5.0) Test 09/14/16 06:33 White Blood Count 10.9th/mm3 (3.8-10.1) Red Blood Count 3.61mil/mm3 (4.40-5.80) Hemoglobin 12.1g/dL (13.8-17.2) Hematocrit 36.7% (41.0-50.0) Mean Corpuscular Volume 101.7fL (81-100) Mean Corpuscular Hemoglobin 33.5pg (27.0-35.0) Mean Corpuscular Hemoglobin Concent 33.0% (32.0-37.0) Red Cell Distribution Width 14.4% (12.3-15.4) Platelet Count 197bil/L (150-400) Neutrophils (%) (Auto) 77.1% (40-74) Lymphocytes (%) (Auto) 13.4% (14-46) Monocytes (%) (Auto) 8.1% (4-12) Eosinophils (%) (Auto) 0.4% (0-5) Basophils (%) (Auto) 0.1% (0-3) Prothrombin Time 34.1sec (8.1-12.5) Prothromb Time International Ratio 3.11ratio Sodium Level 142mEq/L (134-144) Potassium Level 4.0mEq/L (3.5-5.2) Chloride Level 101mEq/L (97-108) Carbon Dioxide Level 27mmol/L (18-29) Blood Urea Nitrogen 25mg/dL (8-27) Creatinine 0.99mg/dL (0.76-1.27) Estimat Glomerular Filtration Rate 77mL/min (>59) Glucose Level 101mg/dL (60-99) Calcium Level 9.0mg/dL (8.5-10.1) Procalcitonin 1.46ng/mL (0.00-0.08) Discharge Medications Discharge Medications Ascorbic Acid (Vitamin C) 1,000 Mg Tab.chew 1,000 MG PO DAILY (Reported) B12/Levomefolate Calcium/B-6 (Foltx Tablet) 1 Each Tablet 1 EACH PO DAILY ( Reported) Cefdinir (Cefdinir) 300 Mg Capsule 300 MG PO BID Prescribed by: DOV SCHUMACHER DO Doxazosin Mesylate (Doxazosin Mesylate) 4 Mg Tablet 4 MG PO DAILY (Reported) Lisinopril (Lisinopril) 20 Mg Tablet 20 MG PO DAILY (Reported) Metoprolol Tartrate (Metoprolol Tartrate) 50 Mg Tablet 75 MG PO BID (Reported) Mometasone/Formoterol (Dulera 200 Mcg/5 Mcg Inhaler) 13 Gm Hfa.aer.ad 2 PUFFS INH BID (Reported) Tiotropium [place] (Spiriva) 18 Mcg Cap.w.dev 18 MCG INH DAILY (Reported) Ubidecarenone (Co Q-10) 10 Mg Capsule 10 MG PO DAILY (Reported) Warfarin Sodium (Jantoven) 2.5 Mg Tablet 2.5 MG PO Wed, ,Wed,, (Reported) Warfarin Sodium (Jantoven) 1 Mg Tablet 1.25 MG PO , (Reported) As needed Albuterol Sulfate (Ventolin HFA Inhaler) 200 Puff/18 Gm Inhaler 2 PUFFS INH PRN For Shortness of Breath (Reported) Prednisone (PredniSONE) 2.5 Mg Tab 5 MG PO DAILY PRN PRN For Mild Pain (Reported ) Additional med instructions Continued medications: Albuterol 2 puffs every 4 hours as needed for shortness of breath. Vitamin C 1000 mg daily. Foltx tablet daily. Doxazosin 4 mg daily. Lisinopril 20 mg daily. Metoprolol tartrate 75 mg twice a day. Dulera 2 puffs inhaled twice a day. Prednisone 5 mg daily. Spiriva 18 g inhaled daily. CoQ10 10 mg daily. Warfarin as directed by [facility]. New medications: Cefdinir 300 mg twice a day 3 days. . Followup Plan Discharge Diet: Heart Healthy Discharge Activity: No restrictions, Outpatient Physical Therapy Patient Instructions Please follow closely with her primary care physician, Dr. Plascencia or his PA , regarding your recent hospitalization for cellulitis. It is recommended a follow-up with outpatient physical therapy for increased strength and mobilization. . Follow-up with PCP in: 1 week Time spent 45 minutes Attending Statement I have seen and evaluated patient at bedside, in addition to directly supervising care provided by resident physician. I agree with above documentation. copies to: Brandon Carbajal MD, Tara L DO Sep 15, 2016 18:42 Jamaal Coreas DO Sep 24, 2016 07:06
== END 2016-09-14 15:58 | disposition home or self-care (01) | DRG 871 ==
LOC: SED 14:51 → MPC 17:41
PROVIDERS: ADMIT Internal Medicine; ATTEND Internal Medicine
DX: A41.9 Sepsis, unspecified organism (principal); J18.9 Pneumonia, unspecified organism; J44.1 Chronic obstructive pulmonary disease with (acute) exacerbation; J10.1 Influenza due to other identified influenza virus with other respiratory manifestations; I48.2 Chronic atrial fibrillation; M25.471 Effusion, right ankle; D64.9 Anemia, unspecified; M19.042 Primary osteoarthritis, left hand; N40.0 Benign prostatic hyperplasia without lower urinary tract symptoms; M19.041 Primary osteoarthritis, right hand; Z95.0 Presence of cardiac pacemaker; Z79.51 Long term (current) use of inhaled steroids; Z79.01 Long term (current) use of anticoagulants; Z79.52 Long term (current) use of systemic steroids